=== PATIENT | female | born 1960 | race Caucasian/White ===

== ENCOUNTER 2024-06-03 22:33 | Inpatient (IN) ==
--- NOTE | 2024-06-03 22:48 | Emergency Department Note ---
Impression & Plan Multiple gallstones ADMIT ED Provider Note HPI: History obtained from patient. The patient is a 64-year-old female with history of alcohol related cirrhosis, mitral and pulmonic valve replacements with subsequent pacemaker placement for AV block, currently on Coumadin, presents the emergency department with a chief complaint of right upper quadrant pain and nausea and vomiting for the past 5 hours. Patient states she developed the symptoms at about 5:30 PM and had multiple episodes of vomiting since then. Patient states she does have a history of gallstones and was in the process of having an elective cholecystectomy arranged. Patient states she was going to have an upcoming appointment with general surgery in [place] for further discussion about this. Patient states they did not want to perform the surgery here in [place] secondary to her multiple comorbidities and the thought was that she had to have it performed at a tertiary care center. On arrival here to the ED otherwise the patient is hemodynamically stable, she states her pain is improved following IV fentanyl in the field via EMS. Patient otherwise appears to be in no acute distress on my initial assessment, she denies any chest pain or shortness of breath. ROS: - Per HPI Differential Diagnosis: Acute cholecystitis, choledocholithiasis, viral gastroenteritis, small bowel obstruction, amongst other potential pathologies. *Outpatient medications and allergy history reviewed. PE: General: Alert, no acute distress HEENT: Normocephalic, trachea midline Eyes: Extraocular eye movement is intact, no scleral erythema Pulmonary: Clear to auscultation bilaterally, no wheezing Cardio: Regular rate and rhythm GI: Abdomen is soft to palpation, there is tenderness in the right upper quadrant to palpation without guarding or rigidity : No suprapubic tenderness MSK: No evidence of trauma or malformation of the extremities, no edema Skin: No evidence of rash Neuro: Alert, no focal deficits Psychiatric: Cooperative INDEPENDENT INTERPRETATIONS: teletypesetter monitor: (As interpreted by myself): - An order was placed for continuous cardiac monitoring - Patient was noted to be in paced rhythm with a rate of 95 EKG: (As interpreted by myself): Rate: 103 Rhythm: Paced rhythm Intervals: MN within normal limits, QRS 148 ms, QTc [address] changes: No ST elevation Time: 2244 Interventions provided in ED: -IV cefepime Medical Decision Making: IV was established and lab work obtained, patient was placed on personnel monitor. Patient was given IV fentanyl in the field prior to arrival with relief of her pain. Lab work shows no leukocytosis, hemoglobin is stable at 10.8, platelet count is slightly low at 109 which appears to be near baseline. INR is supratherapeutic at 4.2, CMP shows a mild transaminitis with AST of 116, ALT of 57, alk phos is 140, total bilirubin is slightly elevated at 1.2. Urinalysis does not show any evidence of infection. Ultrasound imaging of the gallbladder shows evidence of multiple gallstones with some common bile duct dilatation at 8 mm and some pericholecystic fluid. On my exam the patient does have tenderness in the right upper quadrant. For outpatient review of the patient's general surgery notes earlier this month, she did have a HIDA scan performed that was abnormal. She was thought to have possible functional gallbladder disease versus chronic cholecystitis, and per review of Dr. Jefferson's outpatient note the patient was not thought to be a candidate for laparoscopic cholecystectomy secondary to her multiple comorbidities including cirrhosis and would likely require percutaneous cholecystostomy drain that should be done at [facility] in [place] as opposed to locally here in [place]. Patient states that she was in the midst of scheduling an appointment with general surgery in [place] to help arrange this procedure. Given this, I did reach out to the on-call general surgeon at [facility], Dr. Lee, and at this time he states the patient should stay at this facility and receive an MRCP and be evaluated by general surgery prior to potential transfer. I then discussed the patient's presentation with the on-call hospitalist, Dr. Andrade, and he is in agreement to admit the patient to arrange MRCP and general surgery consultation. On my reassessment the patient is resting in bed and she appears stable, she states her pain remains improved. She is in agreement for admission and she was placed for admission in stable condition. Consultants/Discussions held with other healthcare providers: -General Surgery at [facility], Dr. Lee -Hospitalist, Dr. Andrade Disposition discussion held by myself with: -Patient Diagnosis: 1. Nausea and vomiting, acute 2. Right upper quadrant abdominal pain, acute 3. Biliary colic with gallstones, acute 4. Transaminitis, acute, mild 5. Elevated bilirubin, acute, mild 6. Supratherapeutic INR Disposition: Admission Ganesh Sanders DO Emergency Medicine Past Med/Surg History Problem List (Updated 06/04/24 @ 01:13 by Ganesh Sanders DO) Multiple gallstones (Acute) Encounter for pre-operative examination Medical History (Updated 06/04/24 @ 01:13 by Ganesh Sanders DO) Sleep-disordered breathing Thrush self-diagnosed by patient, see below History of blood transfusion Complex sclerosing lesion of right breast Cholelithiasis [facility] ER 03/2024, told "had too many stones to count.. 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 Jordan/Ganesh DONOHUE Pacemaker (2015) [employer], Implanted 2015 for high-grade AV block after valve replacements Pacer check scheduled 06/11/24 in [place] Follows with Dr. 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) History of cardiac cath (2015) "Angiographically normal arteries" Post op Right groin pseudoaneurysm History of breast biopsy (03/2023) Left (benign) History of dilatation and curettage History of bilateral tubal ligation History of colonoscopy S/P thyroid surgery Goiter removal Family History Sister Family history of diabetes mellitus Mother Family history of diabetes mellitus Brother FHx: pancreatic cancer Other No family history of adverse response to anesthesia Social History Smoking Status: Never smoker Tobacco Type: Cigarettes Second Hand Exposure: No; Do You Dip or Chew Tobacco: No; Hx Alcohol Use: Yes Alcohol type: beer Hx Substance Use: No Preferred Language: Kyrgyz Communication Ability: Effective Salesforce Administrator Required: No Beliefs That Will Affect Care: None Current Living Situation: Significant Other Current Living Situation Comment: lives with boyfriend Feels Safe at Home: Yes Assistive Devices: Denture - Upper, Denture - Lower and Glasses Allergies Allergies Allergy/AdvReac Type Severity Reaction Status Date / Time Iodinated Contrast Media Allergy Severe Rash and Verified 05/17/24 14:49 sore mouth with IVP Dye Penicillins Allergy Severe Hives Verified 05/17/24 14:49 Home Meds Home Medications Medication Instructions Recorded Confirmed aspirin 81 mg tablet,delayed 162 mg PO QAM 10/01/19 05/17/24 release (Pacheco Low Dose Aspirin) furosemide 40 mg tablet 40 mg PO QAM 10/01/19 05/17/24 lisinopril 5 mg tablet 5 mg PO QAM 10/01/19 05/17/24 metformin 1,000 mg tablet 1,000 mg PO BID 10/01/19 05/17/24 metoprolol succinate 25 mg 25 mg PO QAM 10/01/19 05/17/24 tablet,extended release 24 hr rosuvastatin 20 mg tablet 20 mg PO QAM 10/01/19 05/17/24 spironolactone 50 mg tablet 50 mg PO TID 10/01/19 05/17/24 warfarin 2 mg tablet 2 mg PO UD 10/01/19 05/17/24 acetaminophen 325 mg tablet 650 mg PO QID PRN Pain 05/17/24 05/17/24 (Tylenol) melatonin 10 mg tablet 10 - 30 mg PO HS PRN Sleep 05/17/24 05/17/24 Results & Data (ED) Vital Signs Vital Signs - 24 hr 06/03/24 22:08 06/03/24 22:38 06/03/24 22:38 Temperature 36.8 C Temperature Source Oral Pulse Rate 105 H 106 H Pulse Rate from SpO2 Sensor 106 H Respiratory Rate 18 18 Respiratory Effort / Characteristics Non-Labored Spontaneous Respiratory Depth Normal Respiratory Pattern Regular Blood Pressure 127/64 127/64 Blood Pressure Mean 85 96 Pulse Oximetry 95 95 95 Oxygen Delivery Method Room Air Room Air Sepsis Recent Fever Within 48 Hours No Sepsis New/Unexplained Change in Mental Status N/A Sepsis Action Taken by Nursing No Action Required 06/03/24 22:39 06/03/24 23:00 06/03/24 23:55 Temperature Temperature Source Pulse Rate 106 H 103 H 100 H Pulse Rate from SpO2 Sensor 101 H Respiratory Rate 18 17 Respiratory Effort / Characteristics Respiratory Depth Respiratory Pattern Blood Pressure 113/59 L 120/74 Blood Pressure Mean 85 97 Pulse Oximetry 94 92 Oxygen Delivery Method Sepsis Recent Fever Within 48 Hours Sepsis New/Unexplained Change in Mental Status Sepsis Action Taken by Nursing 06/04/24 00:00 06/04/24 00:30 Temperature Temperature Source Pulse Rate 100 H 97 H Pulse Rate from SpO2 Sensor 100 H 97 H Respiratory Rate 21 17 Respiratory Effort / Characteristics Respiratory Depth Respiratory Pattern Blood Pressure 116/69 104/64 Blood Pressure Mean 84 77 Pulse Oximetry 93 95 Oxygen Delivery Method Sepsis Recent Fever Within 48 Hours Sepsis New/Unexplained Change in Mental Status Sepsis Action Taken by Nursing Laboratory Data 06/03/24 22:40 06/03/24 22:40 Lab Results 06/03/24 06/03/24 Range/Units 22:40 23:54 WBC 7.25 (4.8-10.8) K/ul RBC 4.59 (4.20-5.40) M/uL Hgb 10.8 L (12.0-16.0) g/dl Hct 35.2 L (37.0-47.0) % MCV 76.7 L (80.0-100.0) fL MCH 23.5 L (25.0-34.0) pg MCHC 30.7 L (32.0-36.0) g/dL RDW Std Deviation 40.3 (36.4-46.3) fL RDW Coeff of Marissa 14.7 H (11.5-14.5) % Plt Count 109 L (130-400) K/uL MPV 8.4 L (9.4-12.4) fL Immature Gran % (Auto) 0.3 % Neut % (Auto) 84.7 % Lymph % (Auto) 10.5 % [place] % (Auto) 3.9 % Eos % (Auto) 0.3 % Baso % (Auto) 0.3 % Neut # (Auto) 6.15 (1.40-6.50) K/uL Lymph # (Auto) 0.76 L (1.20-3.40) K/uL [place] # (Auto) 0.28 (0.11-0.59) K/uL Eos # (Auto) 0.02 (0.00-0.50) K/uL Baso # (Auto) 0.02 (0.00-0.20) K/uL Immature Gran # (Auto) 0.02 (0.01-0.20) K/uL PT 40.3 H (9.0-12.0) Seconds INR 4.2 H (0.9-1.1) Sodium 140 (136-145) mmol/L Potassium 3.7 (3.5-5.1) mmol/L Chloride 100 (98-107) mmol/L Carbon Dioxide 30 (21-32) mmol/L Anion Gap 10 (3-11) BUN 13 (6-23) mg/dl Creatinine 0.78 (0.6-1.2) mg/dl Est Cr Clr Drug Dosing 62.8 ml/min eGFR 83.72 BUN/Creatinine Ratio 16.7 (10-20) Glucose 148 H (70-99(Fasting)) mg/dl Calcium 9.1 (8.6-10.3) mg/dl Magnesium 1.5 L (1.7-2.4) mg/dl Total Bilirubin 1.2 H (0.2-1.0) mg/dl AST 116 H (13-39) U/L ALT 57 H (7-52) U/L Alkaline Phosphatase 140 H (34-104) U/L Troponin I High Sens 5.6 (0-14) pg/ml Total Protein 7.1 (6.0-8.3) gm/dl Albumin 4.2 (3.4-5.0) gm/dl Globulin 2.9 (2.5-4.0) gm/dl Albumin/Globulin Ratio 1.4 (0.9-2) Lipase 164 H (11-82) U/L Urine Color Yellow Urine Appearance Clear (Clear) Urine pH 5.5 (4.5-7.5) Ur Specific [place] 1.009 (1.000-1.030) Urine Protein Negative (Negative) Urine Glucose (UA) Negative (Negative) Urine Ketones Negative (Negative) Urine Blood Negative (Negative) Urine Nitrite Negative (Negative) Urine Bilirubin Negative (Negative) Urine Urobilinogen Negative (Negative) Ur Leukocyte Esterase Negative (Negative) Administered Medications Albumin Human (Albumin 25%) 25 gm in 100 mls @ 50 mls/hr IV ONE ONE Stop: 06/04/24 02:38 Last Admin: 06/04/24 01:05 Dose: 50 mls/hr Documented By: DEE Discontinued Medications Cefepime HCl (Maxipime 2000mg) 2,000 mg in 20 mls @ 5 mls/min IV NOW STA; Protocol Stop: 06/04/24 00:39 Last Admin: 06/04/24 01:08 Dose: 5 mls/min Documented By: DEE Imaging Data Radiologist's Impression: Gallbladder Ultrasound 06/03/24 22:46 Exam(s): US GALLBLADDER EXAM: US Abdomen Limited, Gallbladder CLINICAL HISTORY: Reason for exam: RUQ pain, N/V. TECHNIQUE: Real-time ultrasound of the right upper quadrant with image documentation. COMPARISON: No relevant prior studies available. FINDINGS: Gallbladder: The gallbladder wall measures 3 mm. There is pericholecystic fluid. There are gallstones within the gallbladder. Common bile duct: The common bile duct measured 8 mm.. Pancreas: Pancreas was limitedly visualized. The visualized portions are unremarkable. The pancreatic duct measured 2.4 mm. Liver: The liver is enlarged and of increased echogenicity. Right kidney: No calculi or hydronephrosis is seen. IMPRESSION: There are gallstones noted within the gallbladder. There is pericholecystic fluid noted. The common bile duct is dilated. The liver is enlarged and of increased echogenicity which may be due to fatty infiltration and/or hepatocellular disease. Electronically signed by: Vaibhav Jose MD 06/04/24 00:04 AM Discharge Plan Visit Data Chief Complaint: Abdominal Pain Stated Complaint: ABDOMINAL PAIN ED Provider: Ganesh Sanders Discharge Problem: Multiple gallstones Forms Stand Alone Forms: My [facility] [employer] Prescriptions Prescriptions: No Action furosemide 40 mg Tablet 40 mg PO QAM aspirin [Pacheco Low Dose Aspirin] 81 mg Tablet,Delayed Release (Dr/Ec) 162 mg PO QAM metformin 1,000 mg Tablet 1,000 mg PO BID warfarin 2 mg Tablet 2 mg PO UD Rx Instructions: 3mg Vygq-[id number]-Mcw-Sun 4mg Mon-Mon-Mon lisinopril 5 mg Tablet 5 mg PO QAM metoprolol succinate 25 mg Tablet Extended Release 24 Hr 25 mg PO QAM spironolactone 50 mg Tablet 50 mg PO TID rosuvastatin 20 mg Tablet 20 mg PO QAM acetaminophen [Tylenol] 325 mg Tablet 650 mg PO QID PRN (Reason: Pain) melatonin 10 mg Tablet 10 - 30 mg PO HS PRN (Reason: Sleep) Referrals Referrals: Georgi Ellison MD [Primary Care Provider] -
[2024-06-03 23:09] LABS: Basophils # (auto) 0.02 K/uL (0.00-0.20); Basophils % (auto) 0.3 %; Eosinophils # (auto) 0.02 K/uL (0.00-0.50); Eosinophils % (auto) 0.3 %; Hematocrit (blood only) 35.2 % (37.0-47.0); Hemoglobin 10.8 g/dl (12.0-16.0); Immature Granulocytes # (auto) 0.02 K/uL (0.01-0.20); Immature Granulocytes % (auto) 0.3 %; Lymphocytes # (auto) 0.76 K/uL (1.20-3.40); Lymphocytes % (auto) 10.5 %; Mean Corpuscular Hemoglobin 23.5 pg (25.0-34.0); Mean Corpuscular Hgb Conc 30.7 g/dL (32.0-36.0); Mean Corpuscular Volume 76.7 fL (80.0-100.0); Mean Platelet Volume 8.4 fL (9.4-12.4); Monocytes # (auto) 0.28 K/uL (0.11-0.59); Monocytes % (auto) 3.9 %; Neutrophils # (auto) 6.15 K/uL (1.40-6.50); Neutrophils % (auto) 84.7 %; Platelet Count 109 K/uL (130-400); RDW Coefficient of Variation 14.7 % (11.5-14.5); RDW Standard Deviation 40.3 fL (36.4-46.3); Red Blood Count 4.59 M/uL (4.20-5.40); White Blood Count 7.25 K/ul (4.8-10.8)
[2024-06-03 23:16] LABS: Albumin Globulin Ratio 1.4 (0.9-2); Albumin Level 4.2 gm/dl (3.4-5.0); BUN Creatinine Ratio 16.7 (10-20); Bilirubin,Total 1.2 mg/dl (0.2-1.0); Calcium 9.1 mg/dl (8.6-10.3); Creatinine Clr Calc Pharmacy 62.8 ml/min; Globulin 2.9 gm/dl (2.5-4.0); Potassium 3.7 mmol/L (3.5-5.1); Total Protein 7.1 gm/dl (6.0-8.3)
[2024-06-03 23:21] LABS: Troponin I High Sensitivity 5.6 pg/ml (0-14)
[2024-06-03 23:56] LABS: INR 4.2 (0.9-1.1); Prothrombin Time 40.3 Seconds (9.0-12.0)
--- NOTE | 2024-06-04 00:05 | Ultrasound Report ---
Exam(s): US GALLBLADDER EXAM: US Abdomen Limited, Gallbladder CLINICAL HISTORY: Reason for exam: RUQ pain, N/V. TECHNIQUE: Real-time ultrasound of the right upper quadrant with image documentation. COMPARISON: No relevant prior studies available. FINDINGS: Gallbladder: The gallbladder wall measures 3 mm. There is pericholecystic fluid. There are gallstones within the gallbladder. Common bile duct: The common bile duct measured 8 mm.. Pancreas: Pancreas was limitedly visualized. The visualized portions are unremarkable. The pancreatic duct measured 2.4 mm. Liver: The liver is enlarged and of increased echogenicity. Right kidney: No calculi or hydronephrosis is seen. IMPRESSION: There are gallstones noted within the gallbladder. There is pericholecystic fluid noted. The common bile duct is dilated. The liver is enlarged and of increased echogenicity which may be due to fatty infiltration and/or hepatocellular disease. Electronically signed by: Vaibhav Jose MD 06/04/24 00:04 AM
[2024-06-04 00:14] LABS: Appearance Urine Clear (Clear); Bilirubin Urine Negative (Negative); Blood Urine Negative (Negative); Color Urine Yellow; Glucose Urine UA Negative (Negative); Ketones Urine Negative (Negative); Leukocyte Esterase Urine Negative (Negative); Nitrite Urine Negative (Negative); Protein Urine Negative (Negative); Specific Gravity Urine 1.009 (1.000-1.030); Urobilinogen Urine Negative (Negative); pH Urine 5.5 (4.5-7.5)
[2024-06-04 00:59] LABS: Magnesium 1.5 mg/dl (1.7-2.4)
[2024-06-04] MEDS: ALBUMIN 25% 25 GM/100 ML VIAL IV ONE (01:05)
--- NOTE | 2024-06-04 01:05 | History & Physical Report ---
Date of Service June 04, 2024 Assessment & Plan (1) Hypotension: Plan: Transient hypotension Biliary pancreatitis History cholelithiasis Rule out CBD obstruction given abnormal LFTs No sepsis for now chronic systolic heart failure (EF 45%, TTE 2023), equivocal volume status, some congestion on imaging congenital heart disease (pulmonic regurgitation)/mitral regurgitation status post MVR/PVR complete heart block status post PPM hx postop A-fib on Coumadin, INR supratherapeutic PVD status post surgery hyperlipidemia, on statin Rx alcoholic cirrhosis, some signs of fluid overload right breast atypical ductal hyperplasia, patient follows with local breast surgeon DM2 on oral medications, well-controlled as of recent hemoglobin A1c of 6.5 this month chronic anemia, hemoglobin at baseline chronic thrombocytopenia likely secondary to liver disease Hypomagnesemia alcohol abuse as per records past tobacco abuse PCU IV albumin in place of crystalloid for IVF given pulmonary congestion on imaging CT abdomen pelvis re: abdominal pain with abnormal LFTs rule out CBD obstruction (Patient unable to undergo MRCP due to PPM.) GI consult re: pancreatitis Further management contingent on CT abdomen pelvis results Hold Coumadin for now in anticipation of procedure MER S at risk protocol, DT precautions Replace electrolytes ISS BG goal 1 10-1 40 DVT prophylaxis. SCDs if INR less than 2 while Coumadin on hold re: thrombocytopenia, possible procedure Full code Text document was generated using [employer] voice recognition software. It may contain grammatical or spelling errors. Kindly contact undersigned for clarification of any documentation item in question. History of Present Illness Chief Complaint: Abdominal pain Primary Care Provider: Georgi Ellison MD History obtained from patient and records. Medical history significant for chronic systolic heart failure (EF 45%, TTE 2023), congenital heart disease (pulmonic regurgitation)/mitral regurgitation status post MVR/PVR, complete heart block status post PPM, A-fib on Coumadin, PVD status post surgery, hypertension, hyperlipidemia, alcoholic cirrhosis, cholelithiasis, right breast atypical ductal hyperplasia, DM2 on oral medications, chronic anemia (baseline hemoglobin of 10), chronic thromboc ytopenia, mood disorder, alcohol abuse as per records, past tobacco abuse. 2 months ago, patient had achy right-sided abdominal discomfort. Patient evaluated at [facility] ER. CT abdomen pelvis and ultrasound showed cholelithiasis without obstruction. Outpatient General Surgery consultation recommended. Patient seen at [facility] office last month. Outpatient HIDA scan recommended. 1. Gallbladder does not fill and the patient was unable to receive morphine or delayed images to exclude acute cholecystitis. These findings may represent functional gallbladder disease, chronic cholecystitis or acute cholecystitis. 2. Patent common bile duct. Patient seen on follow-up at the general surgeon's office 2 weeks ago. Concern for chronic cystic duct obstruction due to gallbladder not filling up on HIDA scan. Patient would not be a candidate locally for lap david; PERC drain may be a better intervention given patient medical issues as per provider note. Outpatient referral to [facility] General Surgery 06/07 contemplated. Patient had worsening achy right-sided abdominal pain associated with nausea and bilious emesis following dinner last night. No unusual chest pain or SOB. Some chills at home. Patient consulted ER for evaluation. IV cefepime administered at the ER. ED provider contacted [facility] General Surgery to transfer patient after review of history. Surgeon on-call (Dr. Lee) declined transfer recommending MRCP and [facility] General Surgery evaluation prior to transfer as per ED provider. Lowest SBP of 80s documented at the ER. Medical History as above Surgical History : Breast biopsy, D&C, PPM, BTL, cataract surgeries, MVR, PVR, left breast lumpectomy Family History : DM, hypertension Personal/Social history : Past tobacco abuse, alcohol abuse as per records, retired from childcare work Allergies Allergy/AdvReac Type Severity Reaction Status Date / Time Iodinated Contrast Media Allergy Severe Rash and Verified 06/04/24 02:27 sore mouth with IVP Dye Penicillins Allergy Severe Hives Verified 06/04/24 02:27 Home Medications Medication Instructions Recorded Confirmed Type aspirin 81 mg tablet,delayed 162 mg PO QAM 10/01/19 06/04/24 History release (Pacheco Low Dose Aspirin) furosemide 40 mg tablet 40 mg PO QAM 10/01/19 06/04/24 History metformin 1,000 mg tablet 1,000 mg PO BID 10/01/19 06/04/24 History metoprolol succinate 25 mg 25 mg PO QAM 10/01/19 06/04/24 History tablet,extended release 24 hr rosuvastatin 20 mg tablet 20 mg PO QAM 10/01/19 06/04/24 History spironolactone 50 mg tablet 50 mg PO TID 10/01/19 06/04/24 History warfarin 2 mg tablet 2 mg PO UD 10/01/19 06/04/24 History acetaminophen 325 mg tablet 650 mg PO QID PRN Pain 05/17/24 06/04/24 History (Tylenol) melatonin 10 mg tablet 10 - 30 mg PO HS PRN Sleep 05/17/24 06/04/24 History losartan 25 mg tablet 25 mg PO DAILY 06/04/24 06/04/24 History nystatin 100,000 unit/gram topical 1 applic topical BID 06/04/24 06/04/24 History cream potassium chloride 20 mEq 20 meq PO BID 06/04/24 06/04/24 History tablet,extended release sennosides 8.6 mg tablet (senna) 8.6 mg PO HS PRN Constipation 06/04/24 06/04/24 History tramadol 50 mg tablet 50 mg PO DAILY 06/04/24 06/04/24 History Past Med/Surg History Problem List (Updated 06/04/24 @ 03:58 by Ben Andrade MD) Hypotension Multiple gallstones (Acute) Encounter for pre-operative examination Medical History (Updated 06/04/24 @ 03:58 by Ben Andrade MD) Sleep-disordered breathing Thrush self-diagnosed by patient, see below History of blood transfusion Complex sclerosing lesion of right breast Cholelithiasis [facility] ER 03/2024, told "had too many stones to count.. 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 Jordan/Ganesh Jennings PAC Pacemaker (2016) Medtronic, Implanted 2016 for high-grade AV block after valve replacements Pacer check scheduled 06/11/24 in [place] Follow[address] with Dr. Jordan/Ganesh Jennings PAC Cirrhosis ETOH-related Diabetes mellitus, type 2 NIDDM Hyperlipidemia Hypertension controlled, stable per pt Surgical History (Updated 05/28/24 @ 11:24 by Ese Santizo PA-C) S/P pericardiocentesis (2015) + pericardial window; 2016 after pacer insertion History of open heart surgery (2016) [place]- Mitral and pulmonic valve replacements (bioprosthetic) with pulmonary artery aneurysm repair AND PPM placement for post-procedure AV bl ock (2016) History of cardiac cath (2016) "Angiographically normal arteries" Post op Right groin pseudoaneurysm History of breast biopsy (03/2023) Left (benign) History of dilatation and curettage History of bilateral tubal ligation History of colonoscopy S/P thyroid surgery Goiter removal Family History Sister Family history of diabetes mellitus Mother Family history of diabetes mellitus Brother FHx: pancreatic cancer Other No family history of adverse response to anesthesia Social History Smoking Status: Former smoker Tobacco Type: Cigarettes Smoking End Date: quit "about 30 years ago"; Second Hand Exposure: No; Do You Dip or Chew Tobacco: No; Hx Alcohol Use: Yes Alcohol type: beer Hx Substance Use: No Preferred Language: Cymraes Communication Ability: Effective Label Folder Required: No Beliefs That Will Affect Care: None Current Living Situation: Significant Other Current Living Situation Comment: lives with boyfriend Other Information That Helps Us Care for You: No Feels Safe at Home: Yes Safety Concerns: Feels Safe At This Time Assistive Devices: Denture - Upper, Denture - Lower and Glasses Review of Systems Review of Systems: As per HPI, all other systems reviewed and negative Physical Exam Physical Exam: GENERAL: Comfortable, pleasant, no respiratory distress SKIN: Pallor, warm HEENT: Pale palpebral conjunctivae, no ptosis, dry buccal mucosa NECK : Supple, no tenderness CHEST : Decreased breath sounds, no tenderness HEART : RRR, systolic murmur ABDOMEN: Some distention, epigastric tenderness EXTREMITIES : Minimal LE swelling, no LE tenderness, no other conspicuous deformities noted NEUROLOGIC : Coherent, no facial asymmetry, no other gross focality Results & Data Results & Data Vital Signs (Past 12 Hours) Vital Signs Temp Pulse Resp BP Pulse Ox O2 Del Method 06/04/24 00:30 97 H 17 104/64 95 06/04/24 00:00 100 H 21 116/69 93 06/03/24 23:55 100 H 17 120/74 92 06/03/24 23:00 103 H 18 113/59 L 94 06/03/24 22:39 106 H 06/03/24 22:38 106 H 18 127/64 95 06/03/24 22:38 95 Room Air 06/03/24 22:08 36.8 C 105 H 18 127/64 95 Room Air Laboratory Results Laboratory Results WBC 7.25 K/ul (4.8-10.8) 06/03/24 22:40 RBC 4.59 M/uL (4.20-5.40) 06/03/24 22:40 Hgb 10.8 g/dl (12.0-16.0) L 06/03/24 22:40 Hct 35.2 % (37.0-47.0) L 06/03/24 22:40 MCV 76.7 fL (80.0-100.0) L 06/03/24 22:40 MCH 23.5 pg (25.0-34.0) L 06/03/24 22:40 MCHC 30.7 g/dL (32.0-36.0) L 06/03/24 22:40 RDW Std Deviation 40.3 fL (36.4-46.3) 06/03/24 22:40 RDW Coeff of Marissa 14.7 % (11.5-14.5) H 06/03/24 22:40 Plt Count 109 K/uL (130-400) L 06/03/24 22:40 MPV 8.4 fL (9.4-12.4) L 06/03/24 22:40 Immature Gran % (Auto) 0.3 % 06/03/24 22:40 Neut % (Auto) 84.7 % 06/03/24 22:40 Lymph % (Auto) 10.5 % 06/03/24 22:40 Laurel % (Auto) 3.9 % 06/03/24 22:40 Eos % (Auto) 0.3 % 06/03/24 22:40 Baso % (Auto) 0.3 % 06/03/24 22:40 Neut # (Auto) 6.15 K/uL (1.40-6.50) 06/03/24 22:40 Lymph # (Auto) 0.76 K/uL (1.20-3.40) L 06/03/24 22:40 Laurel # (Auto) 0.28 K/uL (0.11-0.59) 06/03/24 22:40 Eos # (Auto) 0.02 K/uL (0.00-0.50) 06/03/24 22:40 Baso # (Auto) 0.02 K/uL (0.00-0.20) 06/03/24 22:40 Immature Gran # (Auto) 0.02 K/uL (0.01-0.20) 06/03/24 22:40 PT 40.3 Seconds (9.0-12.0) H 06/03/24 22:40 INR 4.2 (0.9-1.1) H 06/03/24 22:40 Sodium 140 mmol/L (136-145) 06/03/24 22:40 Potassium 3.7 mmol/L (3.5-5.1) 06/03/24 22:40 Chloride 100 mmol/L (98-107) 06/03/24 22:40 Carbon Dioxide 30 mmol/L (21-32) 06/03/24 22:40 Anion Gap 10 (3-11) 06/03/24 22:40 BUN 13 mg/dl (6-23) 06/03/24 22:40 Creatinine 0.78 mg/dl (0.6-1.2) 06/03/24 22:40 Est Cr Clr Drug Dosing 62.8 ml/min 06/03/24 22:40 eGFR 83.72 06/03/24 22:40 BUN/Creatinine Ratio 16.7 (10-20) 06/03/24 22:40 Glucose 148 mg/dl (70-99(Fasting)) H 06/03/24 22:40 Calcium 9.1 mg/dl (8.6-10.3) 06/03/24 22:40 Magnesium 1.5 mg/dl (1.7-2.4) L 06/03/24 22:40 Total Bilirubin 1.2 mg/dl (0.2-1.0) H 06/03/24 22:40 AST 116 U/L (13-39) H 06/03/24 22:40 ALT 57 U/L (7-52) H 06/03/24 22:40 Alkaline Phosphatase 140 U/L (34-104) H 06/03/24 22:40 Troponin I High Sens 5.6 pg/ml (0-14) 06/03/24 22:40 Total Protein 7.1 gm/dl (6.0-8.3) 06/03/24 22:40 Albumin 4.2 gm/dl (3.4-5.0) 06/03/24 22:40 Globulin 2.9 gm/dl (2.5-4.0) 06/03/24 22:40 Albumin/Globulin Ratio 1.4 (0.9-2) 06/03/24 22:40 Lipase 164 U/L (11-82) H 06/03/24 22:40 Urine Color Yellow 06/03/24 23:54 Urine Appearance Clear (Clear) 06/03/24 23:54 Urine pH 5.5 (4.5-7.5) 06/03/24 23:54 Ur Specific [place] 1.009 (1.000-1.030) 06/03/24 23:54 Urine Protein Negative (Negative) 06/03/24 23:54 Urine Glucose (UA) Negative (Negative) 06/03/24 23:54 Urine Ketones Negative (Negative) 06/03/24 23:54 Urine Blood Negative (Negative) 06/03/24 23:54 Urine Nitrite Negative (Negative) 06/03/24 23:54 Urine Bilirubin Negative (Negative) 06/03/24 23:54 Urine Urobilinogen Negative (Negative) 06/03/24 23:54 Ur Leukocyte Esterase Negative (Negative) 06/03/24 23:54 Impressions Gallbladder Ultrasound 06/03/24 22:46 Exam(s): US GALLBLADDER EXAM: US Abdomen Limited, Gallbladder CLINICAL HISTORY: Reason for exam: RUQ pain, N/V. TECHNIQUE: Real-time ultrasound of the right upper quadrant with image documentation. COMPARISON: No relevant prior studies available. FINDINGS: Gallbladder: The gallbladder wall measures 3 mm. There is pericholecystic fluid. There are gallstones within the gallbladder. Common bile duct: The common bile duct measured 8 mm.. Pancreas: Pancreas was limitedly visualized. The visualized portions are unremarkable. The pancreatic duct measured 2.4 mm. Liver: The liver is enlarged and of increased echogenicity. Right kidney: No calculi or hydronephrosis is seen. IMPRESSION: There are gallstones noted within the gallbladder. There is pericholecystic fluid noted. The common bile duct is dilated. The liver is enlarged and of increased echogenicity which may be due to fatty infiltration and/or hepatocellular disease. Electronically signed by: Vaibhav Jose MD 06/04/24 00:04 AM Diagnostic Findings Chest x-ray as per my interpretation cardiomegaly, minimal congestion EKG as per my interpretation : Rate 105, paced rhythm
[2024-06-04] MEDS: CEFEPIME 2000MG 2,000 MG/20 ML SYR IV STA (01:08)
[2024-06-04] MEDS ORDERED: LORazepam 2 MG/1 ML VIAL IV PRN (01:08)
[2024-06-04] MEDS ORDERED: LORazepam 0.5 MG TAB PO PRN (01:14)
[2024-06-04] MEDS ORDERED: oxyCODONE HCL IR 5 MG TAB (IMMEDIATE RELEASE) PO PRN (01:14)
--- NOTE | 2024-06-04 01:23 | XRay Report ---
EXAM: XR chest 1V portable CLINICAL HISTORY: CHF WTW TECHNIQUE: An X-ray image of the chest is obtained in AP projection. COMPARISON: No prior studies are available for comparison. FINDINGS: Pulmonary Parenchyma: Prominent broncho vascular markings. No evidence of consolidation, collapse, or focal opacities. No evidence of significant pleural effusion or pleural thickening. Heart and Mediastinum: Cardiac device with right atrial and ventricular leads. Cardiomegaly with a prominent aortic knuckle. Prominent right hilar shadow. Bony Thorax: Sternotomy wires are noted. Soft Tissues: Soft tissues overlying the chest wall are unremarkable. IMPRESSION: 1. Cardiomegaly with prominent broncho vascular markings, clinical correlation is advised to assess pulmonary congestion. 2. Prominent right hilar shadow. 3. Cardiac device with atrial and ventricular leads. Electronically signed by Deondre Zhao 06-04-2024 01:23 AM
[2024-06-04] MEDS: PROMETHAZINE 6.25 MG/50.25 ML BAG IV PRN (01:46)
[2024-06-04] MEDS: THIAMINE HCL 100 MG in SYRINGE 9 ML IV STA (01:46)
[2024-06-04] MEDS ORDERED: DEXTROSE 50% 50 ML SYRINGE IV PRN (02:29)
[2024-06-04] MEDS ORDERED: GLUCOSE 10 TAB/TUBE PO PRN (02:29)
[2024-06-04] MEDS ORDERED: GLUCOSE 40% GEL 15 GM TUBE PO PRN (02:29)
[2024-06-04] MEDS ORDERED: GLUCAGON FOR INJ 1 MG VIAL SQ PRN (02:29)
[2024-06-04] MEDS ORDERED: CARBOHYDRATES FOR HYPOGLYCEMIA PO PRN (02:29)
[2024-06-04] MEDS ORDERED: SENNA 8.6 MG TAB PO PRN (02:55)
[2024-06-04] MEDS: INSULIN ASPART PER UNIT CHARGE SC SCH ×2 (03:02→17:35)
[2024-06-04] MEDS: MAGNESIUM SULFATE / D5W 1 GM/100 ML BAG IV SCH (03:45)
--- NOTE | 2024-06-04 04:24 | CT Scan Report ---
EXAM: CT abd pelvis wo con CLINICAL HISTORY: abd pain TECHNIQUE: Contiguous axial images were obtained from the level of the diaphragm to the pubic symphysis without intravenous or oral contrast. Coronal and sagittal reconstructions were likewise performed and indicated to increase the sensitivity for detecting clinically relevant pathology. CT scan was performed according to ALARA (as low as reasonable achievable). COMPARISON: None. FINDINGS: The visualized lung bases show fibrotic bands and mosaic attenuation pattern. Evaluation of the abdominal and pelvic visceral organs is limited without intravenous contrast. The liver shows nodular margins with apparent left and caudate lobe hypertrophy. Portal vein appears to be replaced by multiple collaterals at shantal hepatis. Multiple calculi averaging 3-4 mm are seen in gallbladder lumen, without pericholecystic fluid or fat stranding. The spleen, pancreas, and adrenal glands are grossly unremarkable. The kidneys are normal in size and attenuation without obvious calcification. There is no hydronephrosis or perinephric stranding. The ureters are normal in caliber. No adenopathy or fluid collections are seen. No evidence of focal or diffuse bowel wall thickening or evidence of bowel obstruction is seen. The appendix is visualized in the right lower quadrant and appears within normal limits. The aorta is normal in caliber without calcific plaques. The uterus shows a subcentimetric lipo-leiomyoma in posterior myometrium and a subcentimetric subserosal calcified fibroid in anterior myometrium. A cystic lesion measuring 4 cm AP by 3 cm transversely is noted in right adnexa. Degenerative changes are noted in the visualized spine. IMPRESSION: 1. Chronic liver disease with periportal portosystemic collaterals. 2. Cholelithiasis, without imaging evidence of cholecystitis. 3. Right adnexal cyst, recommend ultrasound correlation. 4. Small uterine leiomyomas. Electronically signed by Magdaleno Knott 06-04-2024 04:24 AM
[2024-06-04] MEDS: ACETAMINOPHEN 500 MG TAB PO PRN (05:19)
[2024-06-04 06:16] LABS: Basophils # (auto) 0.02 K/uL (0.00-0.20); Basophils % (auto) 0.6 %; Eosinophils # (auto) 0.01 K/uL (0.00-0.50); Eosinophils % (auto) 0.3 %; Hematocrit (blood only) 30.2 % (37.0-47.0); Hemoglobin 9.5 g/dl (12.0-16.0); Immature Granulocytes # (auto) 0.01 K/uL (0.01-0.20); Immature Granulocytes % (auto) 0.3 %; Lymphocytes # (auto) 1.05 K/uL (1.20-3.40); Lymphocytes % (auto) 29.9 %; Mean Corpuscular Hgb Conc 31.5 g/dL (32.0-36.0); Mean Corpuscular Volume 76.3 fL (80.0-100.0); Mean Platelet Volume 8.7 fL (9.4-12.4); Monocytes # (auto) 0.17 K/uL (0.11-0.59); Monocytes % (auto) 4.8 %; Neutrophils # (auto) 2.25 K/uL (1.40-6.50); Neutrophils % (auto) 64.1 %; Platelet Count 102 K/uL (130-400); RDW Coefficient of Variation 14.7 % (11.5-14.5); Red Blood Count 3.96 M/uL (4.20-5.40); White Blood Count 3.51 K/ul (4.8-10.8)
[2024-06-04 06:42] LABS: INR 3.6 (0.9-1.1)
[2024-06-04 06:44] LABS: Albumin Globulin Ratio 1.7 (0.9-2); BUN Creatinine Ratio 16.7 (10-20); Bilirubin,Total 0.9 mg/dl (0.2-1.0); Creatinine Clr Calc Pharmacy 66.3 ml/min; Globulin 2.3 gm/dl (2.5-4.0); Magnesium 2.2 mg/dl (1.7-2.4); Potassium 3.1 mmol/L (3.5-5.1); Total Protein 6.3 gm/dl (6.0-8.3)
--- NOTE | 2024-06-04 07:12 | Communication Note ---
Date of Service: June 04, 2024 patient with concern for pancreatitis with noted gallstones and concern for gallbladder pathology. GI consulted, appreciate recs. General Surgery consulted, appreciate recs After GI evaluation, patient started on clear diet, advance as tolerated. Made n.p.o. after midnight for possible general surgery evaluation. Continue with IV pain meds as needed and antiemetics as needed. MER S protocol as needed, continue to monitor on telemetry for any signs of withdrawal. Pelvic ultrasound ordered for follow-up as noted on CT abdomen pelvis of adnexal cyst. For the full plan of care, please see the history and physical from the same date of service.
[2024-06-04] MEDS: ALBUMIN 25% 25 GM/100 ML VIAL IV SCH (07:48)
[2024-06-04] MEDS: FOLIC ACID 1 MG TAB PO SCH (07:48)
[2024-06-04] MEDS: METOPROLOL SUCC 25MG EXT REL TAB PO SCH (07:48)
[2024-06-04] MEDS: MULTIVITAMIN TAB PO SCH (07:48)
--- NOTE | 2024-06-04 08:42 | Electrocardiogram Report ---
Test Reason : Blood Pressure : */* mmHG Vent. Rate : 103 BPM Atrial Rate : 103 BPM P-R Int : 158 ms QRS Dur : 148 ms QT Int : 408 ms P-R-T Axes : 78 268 81 degrees QTcB Int : 534 ms Atrial-sensed ventricular-paced rhythm Abnormal ECG No previous ECGs available Confirmed by Yobani Paz ([id number]) on 06/04/2024 8:41:31 AM Referred By: REFERRED SELF Confirmed By: Yobani Paz
[2024-06-04] MEDS: INFLUENZA VACC TS2024-25(65y+)/PF (IIV3) 0.5mL Syr IM ONE (08:44)
[2024-06-04] MEDS: POTASSIUM CHLORIDE CRTAB 20 MEQ TABCR PO STA (08:56)
--- OUTSIDE RECORDS SUMMARY | 2024-06-04 10:26 | External Medical Summary | Summary of Care ---
Author Name Unknown Organization [facility] Address [address] [place] [address] Phone [phone] Care Team Providers Care Product Management Consultant Name Role Phone Stephanie Cantu PA-C Primary Care Provider [phone] Reason for Visit * Reason Comments eRx-Medication Refill Encounter Details Date Type Department Care Team (Late st Contact Info) Description 05/27/2024 Refill Family Medicine [address] [phone] Georgi Ellison MD [address] [place] [address] [place] [address] Thrush Allergies Active Allergy Reactions Criticality Noted Date Comments Iodinated Contrast Media Rash 10/27/2015 Oral canker sores Penicillins Rash 10/28/2003 documented as of this encounter (statuses as of 05/28/2024) Medications Blood Glucose Monitoring Suppl (BLOOD GLUCOSE METER) KIT Test once daily or as directed Dx: E11.9 1 Kit 0 015 Active aspirin 81 MG chewable tablet Take 2 Tabs by mouth daily. 60 Tab 0 016 Active nystatin 429704 UNIT/GM creamIndications :Candidal vulvovaginitis Apply topically to affected area 2 times a day. To affacted area for two weeks. 30 g 2 019 Active Additional Information Patient not taking.Reported on 02/19/2024 Melatonin 10 MG Oral Tablet Take 2 Tablets by mouth at bedtime. Active Acetaminophen 500 MG Oral Tablet (Tylenol) Take 1 Tablet by mouth every 6 hours as needed. Active OneTouch Delica Lancets 33GIndications:T ype 2 diabetes mellitus without complications (HCC) USE DIRECTED ONCE DAILY E11.9 100 Each 2 023 Active OneTouch Ultra In Vitro Strip (Glucose Blood)Indication s:Type 2 diabetes mellitus without complications (HCC) USE DIRECTED ONCE DAILY E11.9 100 Strip 2 023 Active Warfarin Sodium 2 MG Oral Tablet (Coumadin) Take 1 and 1/2 tablets to 2 tablets by mouth daily or as directed by anticoagulation clinic. 180 Tablet 3 023 Active metFORMIN HCl 1000 MG Oral Tablet (Glucophage)Luz Marina cations:Type 2 diabetes mellitus with hemoglobin A1c goal of less than 7.0% (HCC) Take 1 Tablet by mouth 2 times a day with morning and evening meals 180 Tablet 3 024 Active Losartan Potassium 25 MG Oral Tablet (Cozaar)Indicati ons:Type 2 diabetes mellitus with hemoglobin A1c goal of less than 7.0% ([facility]) Take 1 Tablet by mouth daily. 90 Tablet 3 024 Active Rosuvastatin Calcium 20 MG Oral Tablet (Crestor)Indicat ions:Dyslipidemi a, goal LDL below 100 Take 1 Tablet by mouth in the morning. 90 Tablet 3 04/16/20 24 11:38 AM EDT 024 Active Metoprolol Succinate ER 25 MG Oral Tablet Extended Release 24 Hour (toPROL XL)Indications:S /P mitral valve replacement with bioprosthetic valve,S/P pulmonary valve replacement with bioprosthetic valve Take 1 Tablet by mouth in the morning. 90 Tablet 1 04/11/20 24 11:00 AM EDT 024 Active Spironolactone 50 MG Oral Tablet (Aldactone) Take 1 Tablet by mouth in the morning and 1 Tablet at noon and 1 Tablet before bedtime. 270 Tablet 1 04/11/20 24 11:00 AM EDT 024 Active Senna 8.6 MG Oral Tablet TAKE 2 TABLETS BY MOUTH AT BEDTIME NEEDED FOR CONSTIPATION Active traMADol HCl 50 MG Oral Tablet (Ultram) TAKE 1 TABLET BY MOUTH EVERY 6 HOURS FOR 2 DAYS NEEDED FOR PAIN Active Furosemide 40 MG Oral Tablet (Lasix) Take 1 Tablet by mouth in the morning. 100 Tablet 04/17/20 24 11:06 AM EDT Active Warfarin Sodium 2 MG Oral Tablet (Coumadin) Take one and one-half to two tablets by mouth daily or as directed by anticoagulation clinic. 200 Tablet 1 04/17/20 24 11:06 AM EDT 024 Active Potassium Chloride Dominique ER 20 MEQ Oral Tablet Extended Release Take 1 Tablet by mouth in the morning. 90 Tablet 1 024 Active Potassium Chloride Dominique ER 20 MEQ Oral Tablet Extended Release Take 1 Tablet by mouth in the morning. 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 03/18/2016 Cardiac pacemaker in situ 03/18/2016 S/P mitral valve replacement with bioprosthetic valve 03/11/2016 Right ventricular dilation 12/21/2015 Overview (12/21/2015): severe History of tobacco use 12/21/2015 Overview (12/21/2015): 36 pack years Contrast media allergy 11/17/2015 Thyroid nodule 10/26/2015 Incomplete right bundle branch block 08/07/2014 Arthritis of left knee 11/18/2013 Dyslipidemia, goal LDL below 100 04/12/2011 Mitral valve prolapse 12/25/2000 Fatty liver Type 2 diabetes mellitus wit h hemoglobin A1c goal of less than 7.0% Overview (11/10/2015): ICD-10 update of inactive term documented as of this encounter (statuses as of 05/28/2024) Resolved Problems Problem Noted Date Diagnosed Date Resolved Date Type 2 diabetes mellitus wit h diabetic chronic kidney disease 03/01/2021 10/15/2021 Systolic congestive heart failure 03/01/2021 10/02/2023 CKD (chronic kidney disease), stage II 02/16/2021 10/06/2023 Overview (02/17/2021): EGFR 84 Atherosclerosis of [place] ronary artery without angina pectoris 08/12/2019 10/06/2023 Alcoholic cirrhosis of liver without ascites 7 05/26/2017 Pseudoaneurysm of femoral artery 05/26/2017 05/26/2017 Pseudoaneurysm of femoral artery 04/23/2016 04/23/2016 Pericardial effusion 04/17/2016 017 Pericarditis 04/05/2016 12/29/2016 S/P mitral valve replacement 03/18/2016 03/18/2016 Thrombocytopenia 03/18/2016 08/12/2019 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 NONTOX MULTINODUL GOITER 06/25/200307/2021 ALCOHOL CIRRHOSIS LIVER 12/25/200005/17 Personal history of alcoholism 07/17/2000 08/28/2017 Overview (12/21/2015): Quit 2000 Pulmonic stenosis 11/17/2015 Chronic liver disease 2015 Mitral regurgitation 017 Overview (12/21/2015): Severe on MALA 12/2015 documented as of this encounter (statuses as of 05/28/2024) Immunizations Name Administration Dates Next Due COVID-19 mRNA, LNP-s, No Pre serve, 2-Dose Series (Moderna) 12/01/2020,11/03/2020 Pneumococcal Conjugate Vacci ne, 20-valent (Lubulst25) 05/12/2022 Pneumococcal Polysaccharide PPV23 (Pneumovax) 04/17/2012 Seasonal Influenza Vac., MDV , IM, 0.5 mL (Fluzone) 04/24/2016,04/24/2014,04/15/2013,04/17,04/12/2011,04/06/2010,04/17/2008 ,05/19/2006 Seasonal Influenza, PF, 6 M & above, IM , (FluLaval or Fluzone) 05/04/2022,06/22/2021,04/30/2020,05/07,04/05/2018,05/04/2017 Seasonal Influenza, Quadriva lent Hd (Fluzone Hd) 05/15/2023 Seasonal Influenza, Quadriva lent, No Preserve, IM 05/08/2015 TD - Tetanus/Diptheria (ADULT) 07/17/2002 TDAP (age 10 and older)(Boostrix) 11/27/2014 Zoster Vaccine Recombinant (Shingrix) 08/08/2020 ,02/27/2020 documented as of this encounter Social History Tobacco Use Types Packs/Day Years Used Date Smoking Tobacco: Former Cigarettes 2 28 0 12/30/1975 - 12/30/2003 Smokeless Tobacco: Never Alcohol Use Standard Drinks/Week Comments Yes 0 (1 standard drink = 0.6 oz pur e alcohol) occ rare beer PHQ-2 Answer Date Recorded PHQ Adult Total Score 0 02/09/2024 Hunger Vital Sign Answer Date Recorded Within the past 12 months, y ou worried that your food would run out before you got the money to buy more. Never true 10/02/19 24 Within the past 12 months, t he food you bought just didn't last and you didn't have money to get more. Never true 10/02/2023 Childcare Answer Date Recorded Do you feel overwhelmed with taking care of a child, family member or friend? No 10/02/2023 Does your family need help f inding childcare? (Household - for ages 0-17 years) Not on file 10/02/2023 Clothing Answer Date Recorded Have you been unable to get clothing when it was really needed? No 10/02/2023 Is your family able to get c lothes or diapers when needed? (Household - for ages 0-17 years) Not on file 10/02/2023 Personal Safety Answer Date Recorded Do you feel unsafe or have concerns for your saf ety? No 10/02/2023 Do you have concerns for you r family's safety? (Household - for ages 0-17 years) Not on file 10/02/2023 Utilities Answer Date Recorded Do you have trouble paying y our heating, water, or electric bill? No 10/02/2023 Is your family able to pay t he heat, water, or electric bill? (Household - for ages 0-17 years) Not on file 10/02/2023 Does your family have access to good internet? (Household - for ages 0-17 years) Not on file 10/02/2023 Employment Status Answer Date Recorded Are you unemployed or without regular income? No 10/02/2023 Does the household have a [facility] source of income? (Household - for ages 0-17 years) Not on file 10/02/2023 Social Connections Answer Date Recorded How often do you feel lonely or isolated from th ose around you? Never 10/02/2023 Financial Resource Strain Answer Date R ecorded Do you have any trouble payi ng for your medications, or do you think you might in the future? No 10/02/2023 Does your family have troubl e paying for medicine? (Household - for ages 0-17 years) Not on file 10/02/2023 Transportation Needs Answer Date Record ed READ ONLY Do you have troubl e getting a ride to medical visits or work? Never True 10/02/2023 Does your family have a hard time getting a ride to doctors visits? (Household - for ages 0-17 years) Not on file 10/02/2023 Has lack of transportation k ept you from medical appointments, meetings, work, or from getting things needed for daily living? Check all that apply. (Adult - for ages 18 years and over) Not on file 10/02/2023 Do you (or your family) have trouble finding or paying for a ride (transportation)? (Household - for ages 0-17 years) Not on file 10/02/2023 Housing Stability Answer Date Recorded Do you currently live in a s helter or have no steady place to sleep at night? No 10/02/2023 READ ONLY Do you think you a re at risk of becoming homeless? No 10/02/2023 Does your family worry about paying for your home or becoming homeless? (Household - for ages 0-17 years) Not on file 0 10/02/2023 Are you homeless or worried that you might be in the future? (Adult - for ages 18 years and over) Not on file Are you (or your family) noa eless or worried that you might be in the future? (Household - for ages 0-17 years) Not on file Food Insecurity Answer Date Recorded Do you need food for this week? No 10/02/2023 Are you able to get enough f ood for your family? (Household - for ages 0-17 years) Not on file 10/02/2023 Does your family need food t his week? (Household - for ages 0-17 years) Not on file 10/02/2023 Do you always have enough fo od for your family? (Household - for ages 0-17 years) Not on file 10/02/2023 Comments No Sex and Gender Information Value Date Recorded Sex Assigned at Female 11/15/2021 9:12 AM EDT Legal Sex Female 5:27 AM EST Gender Identity Female 11/15/2021 9:12 AM EDT Sexual Orientation Straight 11/15/2021 9: 12 AM EDT documented as of this encounter Functional Status * Are you deaf or do you have serious difficulty hearing? Answer Date of Assessment Author No 04/21/2016 1:15 AM EDT Deandra Colbert RN * Are you blind or do you have serious difficulty seeing, even when wearing glasses? Answer Date of Assessment Author No 04/21/2016 1:15 AM EDT Deandra Colbert RN * Do you have serious difficulty walking or climbing stairs? (5 years old or older) Answer Date of Assessment Author No 04/21/2016 1:15 AM EDT Williamso n, Deandra M, RN * Do you have difficulty dressing or bathing? (5 years old or older) Answer Date of Assessment Author No 04/21/2016 1:15 AM Deandra Gillis RN * Because of a physical, mental, or emotional condition, do you have difficulty doing errands alone such as visiting a doctors office or shopping? (15 years old or older) Answer Date of Assessment Author No 04/21/2016 1:15 AM Deandra Gillis RN documented as of this encounter Mental Status * Because of a physical, mental, or emotional condition, do you have serious difficulty concentrating, remembering, or making decisions? (5 years old or older) Answer Entry Date Author No 04/21/2016 1:15 AM Deandra Gillis RN documented in this encounter Miscellaneous Notes * Telephone Encounter - Shahid Reina RPh - 05/28/2024 2:03 PM ESTSigned Prescriptions: Disp Refills Potassium Chloride Dominique ER 20 MEQ Oral Tab*90 Tab*1 Sig: Take 1 Tablet by mouth in the morning.Authorizing Provider: GEORGI ELLISON User: SHAHID REINARefdavid Prescriptions: Disp Refills Nystatin 762441 UNIT/ML Mouth/Throat Suspe*240 mL 1 Sig:Swish and swallow 5 mL in the morning and 5 mL at noon and 5 mL in theevening and 5 mL before bedtime. For thrush..Refused By: SHAHID REINA for Refusal: Patient Should Contact Provider First documented in this encounter Plan of Treatment Upcoming Encounters Date Type Department Care Team (Late st Contact Info) Description 06/03/2024 1:40 PM EST Laboratory Laboratory [address] [place] [phone] [place] [address] 06/04/2024 6:15 AM EST Anticoagulation [facility], Vika Palomino [address] [place] [address] [place] G[place] [address] [facility], [address] [place] [address] 06/07/2024 2:15 PM EST Office Visit General Surgery, [place] [address] [place] [address] Tod Blair MD [address] [place], [place] [id number] 06/10/2024 2:30 PM EST Office Visit Cardiology, [facility] [address] [place] [phone] Karen Montemayor PA-C [address] [place] [address] 06/11/2024 9:00 AM EST Cardiac Studies Cardiology [address] [place] [address] [place] [place] [address] 06/19/2024 9:00 AM EST Scheduled Telephone General Surgery, [facility] [address] [place] [address] [facility], Nurse Gen Surg [facility] [address] [facility] [place] [address] 06/24/2024 7:15 AM EST Office Visit Non [facility], Operating Room, [facility] [address] [place] [facility] [place] [address] León Knox MD [address] [place] [address] 07/04/2024 11:30 AM EST Office Visit General Surgery, [facility] [address] [place] [address] León Knox MD [address] [place] [address] 08/02/2024 9:00 AM EST Office Visit Family Medicine [address] [place] [phone] Georgi Ellison MD [address] [place] [address] [place] [address] 09/03/2024 2:30 PM EST Office Visit Cardiology [address] [place] [address] Ganesh Jennings PA-C [address] [place] [address] 02/14/2025 10:00 AM EDT Nurse Only Ancillary [address] [place] [address] [place], Nurse Annual [address] [place] [address] 03/25/2025 9:45 AM EDT Imaging Radiology [address] [place] [address] Health Maintenance Due Date Last Done Comments Colonoscopy 2003 Sigmoidoscopy 2003 Hepatitis B Vaccine (1 of 3 - Risk 3-dose series) 2018 Fecal Occult Blood Test 03/12/2021 03/12/2020, 03/25 DXA Scan 2023 11/03/2009, 09/04/2007 COVID-19 Vaccine ( season) 2024 12/01/2020, 11/03/2020 Influenza Vaccine (FLU shot) (#1) 2024 05/15/2023, 05/04/2022, 06/22/2021, Additional history exists HbA1c 04/07/2024 10/06/2023, 05/18, 11/18/2022, Additional history exists B-12 06/14/2024 06/14/2023, 04/17, 02/16/2021, Additional history exists Albumin/Creatinine Ratio 10/05/2024 024, 11/18/2022, 10/15/2021, Additional history exists Cologuard 10/21/2024 10/21/2021, 09/16, 10/14/2021 Colorectal Cancer Screening 10/21/2024 DTap/Tdap Vaccines (2 - Td or Tdap) 11/27/2024 11/27/2014, 07/17/2002 Adult Wellness Visit 02/08/2025 02/09/2024, 11/22/2022, 11/15/2021 Depression Screening 02/08/2025 02/09/2024 Diabetic Foot Exam 02/08/2025 02/09/2024, 0 11/18/2022, 03/01/2021, Additional history exists Mammogram 03/05/2025 03/05/2024, 02/15, 02/22/2024, Additional history exists Diabetic Eye Exam 03/14/2025 03/14/2024, , 05/04/2022, Additional history exists GFR 04/22/2025 04/22/2024, 03/17, 01/03/2024, Additional history exists Hepatitis C Screening Completed 11/21/2019, 001 Zoster Vaccines Completed 08/08/2020, 02/27/2020 Pneumococcal Vaccine: 65+ Years Completed 05/12/2022, 04/17/2012 Cervical Cancer Screening Discontinued HPV/Co-Test Discontinued 11/18/2022 Pap Smear Discontinued 11/18/2022, 07/17, 11/27/2014, Additional history exists HPV (Gardasil) Vaccine Aged Out No lo nger eligible based on patient's age to complete this topic MENINGOCOCCAL (MENACTRA/MENVEO) Aged Out No longer eligible based on patient's age to complete this topic documented as of this encounter Medical Devices Implanted Type Area Cad Designer Device Identifier Shelf Expiration Date Model / Serial / Lot Sut Steel 6 [id number] - [id number] Implanted:Qty : 3 on 03/07/2016 by Dylan Puga MD [place] [facility] [place]/A: Sternum JN[place] : [employer] 12/14/2020 [id number] / / [id number] Valve Heart Mitral Epic 27mm - [id number] Implanted:Qty : 1 on 03/07/2016 by Dylan Puga MD at [place] [facility] [place] N/A: Heart ST ERI : CARDIOVASCULAR 01/13/2019 [id number] / [id number] / Valve Heart Aortic Epic 25mm - [id number] Implanted:Qty : 1 on 03/07/2016 by Dylan Puga MD at [place] [facility] [place] N/A: Heart ST ERI : CARDIOVASCULAR 11/25/2019 [id number] / [id number] / Lens Li61ao 13.00mm 18.50 - [id number] - [id number] Implanted:Qty : 1 on 02/29/2024 by Jayant Montaño MD at [facility] Left: Eye [employer] 09/13/2028 [id number] / [id number] / [id number] Lens Li61ao 13.00mm 19.50 - [id number] - [id number] Implanted:Qty : 1 on 03/07/2024 by Jayant Montaño MD at [facility] [employer] 10/14/2028 [id number] / [id number] / [id number] documented as of this encounter Visit Diagnoses Diagnosis Thrush Candidiasis of mouth documented in this encounter Advance Directives * Full Code (Latest Code Status on File) Date Activated Date Inactivated Comments 03/07/2024 10:02 AM 03/07/2024 4:32 PM This order reflects the patients wishes and were consensually agreed upon. Question Answer Comments Discussion of Advance Directives occurred with: Patient Does the patient have a Living Will? No Does the patient have Health Care Power of Attor andrez? No * Full Code Date Activated Date Inactivated Comments 02/29/2024 9:40 AM 02/29/2024 3:58 PM This order r eflects the patients wishes and were consensually agreed upon. Question Answer Comments Discussion of Advance Directives occurred with: Patient Does the patient have a Living Will? No Does the patient have Health Care Power of Attor andrez? No * Full Code Date Activated Date Inactivated Comments 03/03/2020 3:30 PM 03/03/2020 8:48 PM This order r eflects the patients wishes and were consensually agreed upon. Question Answer Comments Discussion of Advance Directives occurred with: Not Discussed * Full Code Date Activated Date Inactivated Comments 03/03/2020 12:40 PM 03/03/2020 3:30 PM This order reflects the patients wishes and were consensually agreed upon. Question Answer Comments Discussion of Advance Directives occurred with: Not Discussed * Full Code Date Activated Date Inactivated Comments 04/20/2016 11:29 PM 04/24/2016 7:11 PM This order reflects the patients wishes and were consensually agreed upon. Question Answer Comments Discussion of Advance Directives occurred with: Patient Care Teams Product Management Consultant Relationship Specialty Start Date End Date Stephanie Cantu PA-C [address] [place] [address] [place] [address] PCP - General Physician Icer Hand 05/07/24 documented as of this encounter
--- OUTSIDE RECORDS SUMMARY | 2024-06-04 10:26 | External Medical Summary | Summary of Care ---
Author Name Unknown Organization [facility] Address [address] [place] [facility] [place] [place] [address] Phone [phone] Care Team Providers Care Direct Of Real Estate Name Role Phone Stephanie Cantu PA-C Primary Care Provider +1- [phone] Reason for Visit * Reason Onset Date Comments Advice 05/28/2024 Encounter Details Date Type Department Care Team ([facility] st Contact Info) Description 05/28/2024 Telephone General Surgery, [facility] [address] [place] [address] León Knox MD [address] [place] [address] Advice Allergies Active Allergy Reactions Criticality Noted Date Comments Iodinated Contrast Media Rash 10/27/2015 Oral canker sores Penicillins Rash 10/28/2003 documented as of this encounter (statuses as of 05/28/2024) Medications Blood Glucose Monitoring Suppl (BLOOD GLUCOSE METER) KIT Test once daily or as directed Dx: E11.9 1 Kit 0 06/05/20 15 Active aspirin 81 MG chewable tablet Take 2 Tabs by mouth daily. 60 Tab 0 04/17/20 16 Active nystatin 967805 UNIT/GM creamIndications: Candidal vulvovaginitis Apply topically to affected area 2 times a day. To affacted area for two weeks. 30 g 2 11/07/19 19 Active Additional Information Patient not taking.Reported on 02/19/2024 Melatonin 10 MG Oral Tablet Take 2 Tablets by mouth at bedtime. Active Acetaminophen 500 MG Oral Tablet (Tylenol) Take 1 Tablet by mouth every 6 hours as needed. Active OneTouch Delica Lancets 33GIndications:Ty pe 2 diabetes mellitus without complications (HCC) USE DIRECTED ONCE DAILY E11.9 100 Each 2 09/15/19 23 Active OneTouch Ultra In Vitro Strip (Glucose Blood)Indications :Type 2 diabetes mellitus without complications (HCC) USE DIRECTED ONCE DAILY E11.9 100 Strip 2 09/15/19 23 Active Warfarin Sodium 2 MG Oral Tablet (Coumadin) Take 1 and 1/2 tablets to 2 tablets by mouth daily or as directed by anticoagulation clinic. 180 Tablet 3 06/27/20 23 Active metFORMIN HCl 1000 MG Oral Tablet (Glucophage)Indic ations:Type 2 diabetes mellitus with hemoglobin A1c goal of less than 7.0% (HCC) Take 1 Tablet by mouth 2 times a day with morning and evening meals 180 Tablet 3 08/29/19 24 Active Losartan Potassium 25 MG Oral Tablet (Cozaar)Indicatio ns:Type 2 diabetes mellitus with hemoglobin A1c goal of less than 7.0% (HCC) Take 1 Tablet by mouth daily. 90 Tablet 3 08/29/19 24 Active Rosuvastatin Calcium 20 MG Oral Tablet (Crestor)Indicati ons:Dyslipidemia, goal LDL below 100 Take 1 Tablet by mouth in the morning. 90 Tablet 3 4 11:38 AM EDT 10/21/19 24 Active Potassium Chloride Dominique ER 20 MEQ Oral Tablet Extended Release Take 1 Tablet by mouth in the morning. 90 Tablet 1 11/22/19 24 Active Metoprolol Succinate ER 25 MG Oral Tablet Extended Release 24 Hour (toPROL XL)Indications:S/ P mitral valve replacement with bioprosthetic valve,S/P pulmonary valve replacement with bioprosthetic valve Take 1 Tablet by mouth in the morning. 90 Tablet 1 4 11:00 AM EDT 01/04/20 24 Active Spironolactone 50 MG Oral Tablet (Aldactone) Take 1 Tablet by mouth in the morning and 1 Tablet at noon and 1 Tablet before bedtime. 270 Tablet 1 4 11:00 AM EDT 01/04/20 24 Active Senna 8.6 MG Oral Tablet TAKE 2 TABLETS BY MOUTH AT BEDTIME NEEDED FOR CONSTIPATION 03/30/20 24 Active traMADol HCl 50 MG Oral Tablet (Ultram) TAKE 1 TABLET BY MOUTH EVERY 6 HOURS FOR 2 DAYS NEEDED FOR PAIN 03/30/20 24 Active Furosemide 40 MG Oral Tablet (Lasix) Take 1 Tablet by mouth in the morning. 100 Tablet 4 11:06 AM EDT 04/15/20 24 Active Warfarin Sodium 2 MG Oral Tablet (Coumadin) Take one and one-half to two tablets by mouth daily or as directed by anticoagulation clinic. 200 Tablet 1 4 11:06 AM EDT 04/15/20 24 Active documented as of this encounter (statuses as [...] 10/06/2023 Overview (02/17/2021): EGFR 84 Atherosclerosis of [place] co ronary artery without angina pectoris 08/12/2019 [...] (Moderna) 12/01/2020,11/03/2020 Pneumococcal Conjugate Vacci ne, 20-valent ([id number]) 05/12/2022 Pneumococcal Polysaccharide PPV23 (Pneumovax) 04/17/2012 Seasonal [...] No 10/02/2023 Does the household have a re lar source of income? (Household - for ages [...] Deandra Colbert RN * Do you have difficulty dressing [...] encounter Miscellaneous Notes * Telephone Encounter - Naomi Santana LPN - 05/28/2024 1:11 PM EST Called patient and told her that if she needs to see somone for thrush it would be her PCP because Dr Knox does not treat that. She already had a script for it and she got it refilled. She said it was because of eating something spicy. * Telephone Encounter - Valerie Shukla OSA - 05/28/2024 11:49 AM EST Patient reported today that she noticed a sensation on her tongue and had white material on it. Patient had leftover medication for thrush and self diagnosed herself and started using it. Ese wantedDr Knox to know to see if he might want patient to see her PCP. documented in this encounter Plan of Treatment Upcoming Encounters Date Type Department Care Team (Late st Contact Info) Description 06/03/2024 1:40 PM EST Laboratory Laboratory [address] [place] [phone] [place] [address] 06/04/2024 6:15 AM EST Anticoagulation [facility] Clinical Pharmacy Services, Vika Palomino [address] [place] [address] [place] [address] [place] [address] 06/07/2024 2:15 PM EST Office Visit General Surgery, [place] [address] [place] [address] Tod Blair MD [address] [place], [place] [id number] 06/10/2024 2:30 PM EST Office Visit Cardiology, [facility] [address] [place] [address] Karen Montemayor PA-C [address] [place] [address] 06/11/2024 9:00 AM EST Cardiac Studies Cardiology [address] [place] [address] [place], Pacer Clinic [facility] [address] [place] [address] 06/19/2024 9:00 AM EST Scheduled Telephone General Surgery, [facility] [address] [place] [address] Santos, Nurse Gen Surg [facility] [place] [address] 06/24/2024 7:15 AM EST Office Visit Non [facility], Operating Room, [place] [address] [facility] [place] [address] León Knox MD [address] [place] [address] 07/04/2024 11:30 AM EST Office Visit General Surgery, [facility] [address] [place] [address] León Knox MD [address] [place] [address] 08/02/2024 9:00 AM EST Office Visit Family Medicine [address] [place] [phone] Georgi Ellison MD [address] [place] [address] [place] [address] 09/03/2024 2:30 PM EST Office Visit Cardiology [address] [place] [address] Ganesh Jennings PA-C [address] [place] [address] 02/14/2025 10:00 AM EDT Nurse Only Ancillary [address] [place] [address] [place], Nurse Annual Wellness [address] [place] [address] [place] [address] 03/25/2025 9:45 AM EDT Imaging Radiology [address] [place] [address] Health Maintenance Due Date Last Done Comments Colonoscopy 2003 Sigmoidoscopy 2003 Hepatitis B Vaccine (1 of 3 - Risk 3-dose series) 2018 Fecal Occult Blood Test 03/12/2021 03/12/2020, 03/25 DXA Scan 2023 11/03/2009, 09/04/2007 COVID-19 Vaccine ( season) 2024 12/01/2020, 11/03/2020 Influenza Vaccine (FLU shot) (#1) 2024 05/15/2023, 05/04/2022, 06/22/2021, Additional history exists HbA1c 04/07/2024 10/06/2023, 11/2 03/2023, 11/18/2022, Additional history exists B-12 06/14/2024 06/14/2023, [...] this encounter Medical Devices Implanted Type Area Financial Health Counselor Device Identifier Shelf Expiration Date Model / Serial / Lot Pramod Han 6 M654g - [id number] Implanted:Qty : 3 on 03/07/2016 by Dylan Puga MD at [place] [facility] N/A: Sternum JNJ : [employer] 12/14/2020 [id number] / / [id number] Valve Heart Mitral Epic 27mm - [id number] Implanted:Qty : 1 on 03/07/2016 by Dylan Puga MD at OR [facility] [place] N/A: Heart ST ERI : CARDIOVASCULAR 01/13/2019 [id number] / [id number] / Valve Heart Aortic Epic 25mm - [id number] Implanted:Qty : 1 on 03/07/2016 by Dylan Puga MD at OR [facility] [place] N/A: Heart ST ERI : CARDIOVASCULAR 11/25/2019 [id number] / [id number] / Lens Li61ao 13.00mm 18.50 - [id number] - [id number] Implanted:Qty : 1 on 02/29/2024 by Jayant Montaño MD at OR [facility] Left: Eye [employer] 09/13/2028 [id number] / [id number] / [id number] Lens Li61ao 13.00mm 19.50 - [id number] - [id number] Implanted:Qty : 1 on 03/07/2024 by Jayant Montaño MD at OR [facility] BAUSCH [employer]OMB 10/14/2028 [id number] / [id number] / [id number] documented as of this encounter Advance Directives * Full Code [...] Advance Directives occurred with: Patient Care Teams Direct Of Real Estate Relationship Specialty Start Date End Date Stephanie Cantu PA-C [address] [place] [address] [place] [address] PCP - General Physician [employer] 05/07/24 documented as of this encounter
--- OUTSIDE RECORDS SUMMARY | 2024-06-04 10:26 | External Medical Summary | Summary of Care ---
Author Name Unknown Organization [facility] Address [address] [place] [address] Phone [phone] Care Team Providers Care Behavioral Sciences Instructor Name Role Phone Stephanie Cantu PA-C Primary Care Provider +1- [phone] Reason for Visit * Reason Comments Outpatient Testing Encounter Details Date Type Department Care Team (Late st Contact Info) Description 06/03/2024 1:40 PM EST Laboratory Laboratory [address] [place] [phone] [address] [place] [address] S/P mitral valve replacement with bioprosthetic valve Allergies Active Allergy Reactions Criticality Noted Date Comments Iodinated Contrast Media Rash 10/27/2015 Oral canker sores Penicillins Rash 10/28/2003 documented as of this encounter (statuses as of 06/03/2024) Medications Blood Glucose Monitoring Suppl (BLOOD GLUCOSE METER) KIT Test once daily or as directed Dx: E11.9 1 Kit 0 06/05/20 15 Active aspirin 81 MG chewable tablet Take 2 Tabs by mouth daily. 60 Tab 0 04/17/20 16 Active nystatin 158348 UNIT/GM creamIndications: Candidal vulvovaginitis Apply topically to [...] 4 11:38 AM EDT 10/21/19 24 Active Metoprolol Succinate ER 25 MG [...] 4 11:06 AM EDT 04/15/20 24 Active Potassium Chloride Dominique ER 20 MEQ Oral Tablet Extended Release Take 1 Tablet by mouth in the morning. 90 Tablet 1 05/28/20 24 Active documented as of this encounter (statuses as of 06/03/2024) Active Problems Problem Noted Date Diagnosed Date [...] as of this encounter (statuses as of 06/03/2024) Resolved Problems Problem Noted Date Diagnosed Date Resolved Date Type 2 diabetes mellitus wit h diabetic chronic kidney disease 03/01/2021 10/15/2021 Systolic congestive heart failure 03/01/2021 10/02/2023 CKD (chronic kidney disease), stage II 02/16/2021 10/06/2023 Overview (02/17/2021): EGFR 84 Atherosclerosis of [place] co ronary artery without angina pectoris 08/12/2019 [...] as of this encounter (statuses as of 06/03/2024) Immunizations Name Administration Dates Next Due COVID-19 mRNA, LNP-s, No Pre serve, 2-Dose Series (Moderna) 12/01/2020,11/03/2020 Pneumococcal Conjugate Vacci ne, 20-valent ([id number]) 05/12/2022 Pneumococcal Polysaccharide PPV23 (Pneumovax) 04/17/2012 Seasonal [...] Deandra Gillis RN documented in this encounter Plan of Treatment Upcoming Encounters Date Type Department Care Team (Late st Contact Info) Description 06/04/2024 6:15 AM EST Anticoagulation [facility], [place] [address] [place] [address] [place] [address] [place] [address] 06/07/2024 2:15 PM EST [facility] [address] [place] [address] Tod Blair MD [address] [place] [address] 06/10/2024 2:30 PM EST Office Visit Cardiology, [facility] [address] [facility] [place] [address] Karen Montemayor PA-C [address] [facility] [place] [address] 06/11/2024 9:00 AM EST Cardiac Studies Cardiology [address] [place] [address] Rajeev Duckworth [facility] 132 [facility] [place] [address] 06/19/2024 9:00 AM EST Scheduled Telephone General Surgery, [facility] [address] [place] [address] Nurse Tom Gen Surg Abdulaziz [address] [place] [address] 06/24/2024 7:15 AM EST Office Visit Non [facility], Operating Room, [address] [place] [address] León Knox MD [address] [place] [address] 07/04/2024 11:30 AM EST Office Visit General Surgery, [facility] [address] [place] [address] León Knox MD [address] [place] [address] 08/02/2024 9:00 AM EST Office Visit Family Medicine [address] [place] [phone] Georgi Ellison MD [address] [place] [address] [place] [address] 09/03/2024 2:30 PM EST Office Visit Cardiology [address] [place] [address] Ganesh Jennings PA-C [address] [place] [address] 02/14/2025 10:00 AM EDT Nurse Only Ancillary [address] [place] [address] Donita, Nurse [address] [place] [address] 03/25/2025 9:45 AM EDT Imaging Radiology [address] [place] [address] Pending Results Name Type Priority Associated Diagnoses Date /Time PT INR Lab Routine S/P mitral valve replacement with bioprosthetic valve 06/03/2024 11:30 AM EST Health Maintenance Due Date Last Done Comments [...] this encounter Medical Devices Implanted Type Area Instructor Physical Education Device Identifier Shelf Expiration Date Model / Serial / Lot Sut Steel 6 M654g - [id number] Implanted:Qty : 3 on 03/07/2016 by Dylan Puga MD at OR [facility] N/A: Sternum JNJ : [employer] 12/14/2020 M654G / / [id number] Valve Heart Mitral Epic 27mm - [id number] Implanted:Qty : 1 on 03/07/2016 by Dylan uPga MD at OR [facility] N/A: Heart ST ERI : CARDIOVASCULAR 01/13/2019 [id number] / [id number] / Valve Heart Aortic Epic 25mm - [id number] Implanted:Qty : 1 on 03/07/2016 by Dylan Puga MD at OR [facility] N/A: Heart ST ERI : CARDIOVASCULAR 11/25/2019 [id number] 00 / [id number] / Lens Li61ao 13.00mm 18.50 - [id number] - [id number] Implanted:Qty : 1 on 02/29/2024 by Jayant Montaño MD at OR [facility] Left: Eye [employer] 09/13/2028 [id number] / [id number] / [id number] Lens Li61ao 13.00mm 19.50 - [id number] - [id number] Implanted:Qty : 1 on 03/07/2024 by Jayant Montaño MD at OR [facility] BA[employer]CH [employer]OM[employer] 10/14/2028 [id number] / [id number] / [id number] documented as of this encounter Visit Diagnoses Diagnosis S/P mitral valve replacement with bioprosthetic valve Heart valve replaced by other means documented in this encounter Advance Directives * [...] 9:40 AM 02/29/2024 3:58 PM This order reflects the patients wishes [...] Advance Directives occurred with: Patient Care Teams Behavioral Sciences Instructor Relationship Specialty Start Date End Date Stephanie Cantu PA-C [address] [place] [address] [place] [address] PCP - General Physician Statistical Technician 05/07/24 documented as of this encounter
--- OUTSIDE RECORDS SUMMARY | 2024-06-04 11:09 | External Medical Summary ---
Author Name Unknown Address Unknown Organization K01:LABORATORY [facility] - [address] [place] [address] Laboratory Report Ordering Provider Test Date Status FABIÁN HAYES 06/03/2024 11:30:44 Final Standing order for pt/inr. < br/>Please draw pt/inr every 1 to 4 weeks as requested
Results to [facility] Anticoagulation Clinic

Warfarin Therapy
INR: 2.0-3.0 conventional anticoagulation
INR: 2.5-3.5 high intensity anticoagulation Observation Date Value Abnormality Reference (Units ) Status PT 06/03/2024 11:30:44 33.3 Above high normal 11 .6-15.2 (seconds) Final INR 06/03/2024 11:30:44 3.2 Above high normal 0. 8-1.2 Final Performing Location LABORATORY [facility] - [address] [address]
--- NOTE | 2024-06-04 13:26 | Gastrointestinal Consultation ---
Date of Consultation June 04, 2024 Assessment & Plan (1) Multiple gallstones: (2) RUQ pain: Plan -Continue with pain management and supportive care -Given concern for chronic cystic duct obstruction and symptoms possibly being related to gallbladder issues she has been following with general surgery. An attempt was reportedly made in the ED to transfer patient to [facility]. [facility] general surgery declined transfer of this patient and advised locally obtaining an MRCP & general surgery consult here. She reportedly cannot have an MRCP because of a pacemaker. -Protonix 40 mg BID -Continue to monitor LFTs Supervising Physician Co-Signing Physician Notes I examined the patient and reviewed patient's chart , laboratory data and imaging studies. I agree with with assessment and plan of care as suggested by advanced practice provider. Possibly passed common bile duct stone with recent transient rise in bilirubin and transaminases. Alternatively LFTs elevated due to chronic liver disea se/alcoholic cirrhosis. Top normal gallbladder wall thickness and small amount of pericholecystic fluid could reflect underlying portal hypertension rather than acute cholecystitis. For recurrent symptoms and if there is a high suspicion for acute cholecystitis percutaneous cholecystostomy could be considered. Due to underlying cirrhosis the patient is a high risk for cholecystectomy. Further management as per surgery. History of Present Illness Reason for Consultation: "pancreatitis" Attending Physician: Erika Pierson MD History of Present Illness Patient is a 64 yo female with PMH of chronic systolic heart failure, pulmonic regurgitation, mitral regurgitation, complete heart block, atrial fibrillation on coumadin, PVD, HTN, HLD, alcoholic cirrhosis, cholelithiasis, DM2, right breast ductal hyperplasia, alcohol abuse, & chronic thrombocytopenia. She presented to the ED after an abrupt onset of RUQ pain, nausea, & vomiting. She had a similar episode 2 months ago and was seen at [facility] ER in [place]. A CT abdomen/pelvis indicated cholelithiasis. A HIDA scan indicated concern for chronic vs acute cholecystitis. She was seen by a general surgeon. She was told she was too high risk to have a cholecystectomy locally and a perc drain was briefly discussed before they decided on an outpatient referral to [facility] general surgery. An attempt to transfer her was made in the ED but general surgery at [facility] refused her transfer. An MRCP was reportedly advised as well as general surgery consultation at this facility. GI has been asked to weigh in for possible pancreatitis. Patient's CT does not demonstrate any abnormalities of the pancreas. She is noted to have cholelithiasis. Lipase minimally elevated at 164. T bili was 1.2 on admission and is now 0.9. AST 116 now 208. ALT 57 now 113. Allergies Allergy/AdvReac Type Severity Reaction Status Date / Time Iodinated Contrast Media Allergy Severe Rash and Verified 06/04/24 02:27 sore mouth with IVP Dye Penicillins Allergy Severe Hives Verified 06/04/24 02:27 Home Medications Medication Instructions Recorded Confirmed Type aspirin 81 mg tablet,delayed 162 mg PO QAM 10/01/19 06/04/24 History release (Pacheco Low Dose Aspirin) furosemide 40 mg tablet 40 mg PO QAM 10/01/19 06/04/24 History metformin 1,000 mg tablet 1,000 mg PO BID 10/01/19 06/04/24 History metoprolol succinate 25 mg 25 mg PO QAM 10/01/19 06/04/24 History tablet,extended release 24 hr rosuvastatin 20 mg tablet 20 mg PO QAM 10/01/19 06/04/24 History spironolactone 50 mg tablet 50 mg PO TID 10/01/19 06/04/24 History warfarin 2 mg tablet 2 mg PO UD 10/01/19 06/04/24 History acetaminophen 325 mg tablet 650 mg PO QID PRN Pain 05/17/24 06/04/24 History (Tylenol) melatonin 10 mg tablet 10 - 30 mg PO HS PRN Sleep 05/17/24 06/04/24 History losartan 25 mg tablet 25 mg PO DAILY 06/04/24 06/04/24 History nystatin 100,000 unit/gram topical 1 applic topical BID 06/04/24 06/04/24 History cream potassium chloride 20 mEq 20 meq PO BID 06/04/24 06/04/24 History tablet,extended release sennosides 8.6 mg tablet (senna) 8.6 mg PO HS PRN Constipation 06/04/24 06/04/24 History tramadol 50 mg tablet 50 mg PO DAILY 06/04/24 06/04/24 History Patient History Medical History (Updated 06/04/24 @ 13:27 by Keri John PA-C) Sleep-disordered breathing Thrush self-diagnosed by patient, see below History of blood transfusion Complex sclerosing lesion of right breast Cholelithiasis [facility] 03/2024, told "had too many stones to count.. 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 Jordan/Ganesh DONOHUE Pacemaker (2016) Medtronic, Implanted 2016 for high-grade AV block after valve replacements Pacer check scheduled 06/11/24 in [place] Follows with Dr. Jordan/Ganesh DONOHUE Cirrhosis ETOH-related Diabetes mellitus, type 2 NIDDM Hyperlipidemia Hypertension controlled, stable per pt Surgical History (Updated 05/28/24 @ 11:24 by Ese Santizo PA-C) S/P pericardiocentesis (2015) + pericardial window; 2016 after pacer insertion History of open heart surgery (2015) [place]- Mitral and pulmonic valve replacements (bioprosthetic) with pulmonary artery aneurysm repair AND PPM placement for post-procedure AV block (2015) History of cardiac cath (2015) "Angiographically normal arteries" Post op Right groin pseudoaneurysm History of breast biopsy (03/2023) Left (benign) History of dilatation and curettage History of bilateral tubal ligation History of colonoscopy S/P thyroid surgery Goiter removal Family History Sister Family history of diabetes mellitus Mother Family history of diabetes mellitus Brother FHx: pancreatic cancer Other No family history of adverse response to anesthesia Social History Smoking Status: Former smoker Tobacco Type: Cigarettes Smoking End Date: quit "about 30 years ago"; Second Hand Exposure: No; Do You Dip or Chew Tobacco: No; Hx Alcohol Use: Yes Alcohol type: beer Hx Substance Use: No Preferred Language: Nigerien Communication Ability: Effective Crossing Gateman Required: No Beliefs That Will Affect Care: None Current Living Situation: Significant Other Current Living Situation Comment: lives with boyfriend Other Information That Helps Us Care for You: No Feels Safe at Home: Yes Safety Concerns: Feels Safe At This Time Assistive Devices: Denture - Upper, Denture - Lower and Glasses Results & Data Vital Signs (Past 12 Hours) Vital Signs Temp Pulse Pulse Resp BP BP Pulse Ox 06/04/24 11:39 36.8 C 74 17 117/65 91 06/04/24 08:00 36.7 C 73 17 102/60 95 06/04/24 03:40 36.6 C 98 H 16 130/77 95 06/04/24 03:31 92 H 06/04/24 03:27 93 H 23 130/77 93 06/04/24 02:59 95 H 22 126/67 95 06/04/24 01:47 96 H 18 113/63 92 06/04/24 01:30 88 18 87/55 L 92 O2 Del Method 06/04/24 11:39 Room Air 06/04/24 08:00 Room Air 06/04/24 03:40 Room Air 06/04/24 03:31 06/04/24 03:27 06/04/24 02:59 06/04/24 01:47 06/04/24 01:30 PG Care Time/CCT Total # of Minutes Spent Total Time Spent with Patient: Total time spent is greater than 50% in coordination of care (as documented) at patient's floor/unit and/or counseling patient: Coding Level of Care Code 46443 INT INP/OBS CARE 3/75MIN Diagnoses Multiple gallstones K80.20 RUQ pain R10.11
--- NOTE | 2024-06-04 14:02 | Ultrasound Report ---
PELVIC ULTRASOUND CLINICAL HISTORY: f/u adnexal cyst on CT COMPARISON STUDY: CT of the abdomen and pelvis June 04, 2024. TECHNIQUE: Transabdominal sonography of the pelvis was performed. Transvaginal imaging was deferred. FINDINGS: The uterus measures 6.7 x 4.5 x 2.9 cm. The endometrium is thickened, measuring 1.7 cm. A 1 .2 cm echogenic focus within the posterior fundus corresponds to a fat-containing lesion on CT. Left ovary was not visualized. There is no free fluid. No adnexal mass was identified. A 4.1 x 4 x 2.6 cm cystic right adnexal lesion corresponds to the lesion on CT. There is mild irregularity and nodulari ty of the wall of this lesion. No color flow is identified within this lesion. IMPRESSION: 1. 4.1 cm cystic right adnexal lesion which corresponds to the finding on CT. Irregularity and mild n odularity of the wall without color flow. This represents a pathologically indeterminate right ovaria n cystic lesion. Nonemergent Gynecologic consultation is recommended. 2. Thickened endometrium, measuring 1.7 cm. This is abnormal in a postmenopausal patient and correlat ion with postmenopausal bleeding and tissue sampling if possible. 3. 1.2 cm echogenic focus within the fundus which corresponds to a fat-containing lesion by CT. This represents a lipoleiomyoma. ACT 112: Positive. There are findings on this exam that require communication between the performing entity and the patient following Patient Test Result Information Act ([place] Act 112) guidelines. Electronically signed by: Smith Hilton M.D. 06/04/2024 2:00 PM
[2024-06-04] MEDS ORDERED: Nursing to Pharmacy Communication SCH (16:30)
--- NOTE | 2024-06-04 19:12 | Surgery Consultation ---
Date of Consultation June 04, 2024 Assessment & Plan (1) Multiple gallstones: The patient has been admitted on the hospitalist service. From surgery perspective we recommend the following: For the present time would not advance patient's diet past liquids Provide analgesics as needed Provide antiemetics as needed Patient has been seen by gastroenterology. It is recommended that the patient undergo an MRCP however due to the patient's pacemaker this cannot be performed. There is concern the patient may have potentially passed a common bile duct stone which resulted in her elevated LFTs. This service did comment that the patient has an underlying history of cirrhosis and would therefore be considered a high surgical risk if it is felt that cholecystectomy was advisable As the patient is considered high surgical risk, would recommend repeating her LFTs on 06/05/2024. If there is continued rise of her LFTs she may necessitate an ERCP as an MRCP is not able to be done due to her pacemaker If it is determined that patient does require intervention to her gallbladder she may benefit from percutaneous cholecystostomy due to her underlying medical comorbidities In addition the patient was noted to have a slight elevation of her lipase and this should be repeated as well to ensure that she does not have any evidence of worsening pancreatitis. It would be beneficial to hold patient's Coumadin (if clinically able) as she does have therapeutic INR and would like to decrease any risk of procedural bleeding in the event that this needs to be done (her Coumadin is currently on holdshe does note that her most recent dose was on 06/02/2024) Additional recommendations will be forthcoming based on her clinical course as it unfolds Supervising Physician Co-Signing Physician Notes pnt d/w JACQUELIN Coles, labs and imaging reviewed, agree w/ above. cholelithiasis and possible gallstone pancreatitis/ choledocholithiasis, h/o cirrhosis, ascad, has pacer so not able to get MRCP. was scheduled to be evaluated in [place] for possible lap david. Will see how she does with diet, may f/u in [facility] as outpnt. History of Present Illness Reason for Consultation: Cholelithiasis Attending Physician: Vicente Castellanos MD History of Present Illness This is a 64-year-old female who presented to the emergency department secondary to abdominal pain. Approximately 2 months ago the patient did have some right- sided abdominal discomfort and was evaluated at [facility] and [place], [place]. She underwent a CT scan abdomen pelvis at that time as well as an ultrasound that showed cholelithiasis. An outpatient surgical evaluation was recommended. The patient was seen by Dr. Jefferson of [facility] general surgery here in [place]. An outpatient HIDA scan was recommended and this was completed which showed that the gallbladder did not fill and there was concern the patient may have had functional gallbladder disease, chronic cholecystitis, or acute cholecystitis. It was felt the patient was a high surgical risk due to multiple medical comorbidities and he felt patient would best be served by evaluation by general surgeon at a tertiary care facility. The patient notes that she was scheduled to see a general surgeon at [facility] in [place], [place] this coming Monday on 06/07/2024. Prior to the patient being able to be evaluated by general surgery at [facility] she presented to the emergency department at [facility] on 06/04/2024 secondary to right upper quadrant pain. She notes that the pain began approximately 1 hour after eating some ham. She did not have any fevers but did report some chills. She also had some nausea or vomiting. She did not report any radiation or modifying factors to her pain. The treating emergency room physician did reach out to general surgery at [facility] and they did not feel transfer was warranted at this time and they recommended general surgery evaluation about any Medical Center. The patient has since been admitted to [facility] for further evaluation. Of note, the patient notes that her pain has improved somewhat and she has thus far tolerated the liquid diet without worsening of her pain. Since arrival to [facility] the patient has had labs and imaging which I independently reviewed. A gallbladder ultrasound showed gallstones within the gallbladder however there is no pericholecystic fluid. The common bile duct was noted to be dilated. Her liver was noted to be enlarged which was felt to be indicative of hepatocellular disease. A chest x- ray showed cardiomegaly. A CT scan of the abdomen pelvis showed the patient had chronic liver disease with periportal portosystemic collaterals. She was noted to have gallstones without evidence of cholecystitis. A pelvic ultrasound was performed where patient was noted to have a 4.1 cm right adnexal cyst. Labs included CBC were white blood cell count was 3.5. Hemoglobin and hematocrit were 9.5 and 30.2. Platelet count is 102,000. Her INR most recently was from the morning of 06/04/2024 and was noted to be 3.6. Chemistry profile showed sodium and potassium are 141 and 3.1. Her BUN and creatinine are both normal. At time of presentation her bilirubin is 1.2 but this has improved to 0.9. She did have elevation of her AST and ALT with present values at 208 and 113 respectively (both of these values have increased from time of initial presentation. Her alkaline phosphatase level is 135. Patient did have a slight elevation of her lipase at 164. I did question the patient on her symptomatology before this admission and she notes that she was having very frequent right upper quadrant abdominal pain that did not seem to be related to meals. Is also important to recognize that the patient does carry a significant cardiovascular history. The patient was noted to have open heart surgery where she underwent a mitral valve replacement in February 2016 along with a pulmonary valve replacement and a pulmonary artery aneurysm arterioplasty. Patient also has a dual-chamber pacemaker placed in February 2016 secondary to high-grade AV block. In addition, the patient has an underlying history of atrial fibrillation. She does note with her activities of daily living she does not typically get chest pain or shortness of breath. At the time of my interview she was resting comfortably in bed and she was in no distress Allergies Allergy/AdvReac Type Severity Reaction Status Date / Time Iodinated Contrast Media Allergy Severe Rash and Verified 06/04/24 02:27 sore mouth with IVP Dye Penicillins Allergy Severe Hives Verified 06/04/24 02:27 Home Medications Medication Instructions Recorded Confirmed Type aspirin 81 mg tablet,delayed 162 mg PO QAM 10/01/19 06/04/24 History release (Pacheco Low Dose Aspirin) furosemide 40 mg tablet 40 mg PO QAM 10/01/19 06/04/24 History metformin 1,000 mg tablet 1,000 mg PO BID 10/01/19 06/04/24 History metoprolol succinate 25 mg 25 mg PO QAM 10/01/19 06/04/24 History tablet,extended release 24 hr rosuvastatin 20 mg tablet 20 mg PO QAM 10/01/19 06/04/24 History spironolactone 50 mg tablet 50 mg PO TID 10/01/19 06/04/24 History warfarin 2 mg tablet 2 mg PO UD 10/01/19 06/04/24 History acetaminophen 325 mg tablet 650 mg PO QID PRN Pain 05/17/24 06/04/24 History (Tylenol) melatonin 10 mg tablet 10 - 30 mg PO HS PRN Sleep 05/17/24 06/04/24 History losartan 25 mg tablet 25 mg PO DAILY 06/04/24 06/04/24 History nystatin 100,000 unit/gram topical 1 applic topical BID 06/04/24 06/04/24 History cream potassium chloride 20 mEq 20 meq PO BID 06/04/24 06/04/24 History tablet,extended release sennosides 8.6 mg tablet (senna) 8.6 mg PO HS PRN Constipation 06/04/24 06/04/24 History tramadol 50 mg tablet 50 mg PO DAILY 06/04/24 06/04/24 History Patient History Medical History Sleep-disordered breathing Thrush self-diagnosed by patient, see below History of blood transfusion Complex sclerosing lesion of right breast Cholelithiasis [facility] ER 03/2024, told "had too many stones to count.. 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 Jordan/Ganesh DONOHUE Pacemaker (2015) [employer], Implanted 2015 for high-grade AV block after valve replacements Pacer check scheduled 06/11/24 in [place] Follows with Dr. Jordan/aGnesh DONOHUE Cirrhosis ETOH-related Diabetes mellitus, type 2 NIDDM Hyperlipidemia Hypertension controlled, stable per pt Surgical History S/P pericardiocentesis (2015) + pericardial window; 2016 after pacer insertion History of open heart surgery (2015) [place]- Mitral and pulmonic valve replacements (bioprosthetic) with pulmonary artery aneurysm repair AND PPM placement for post-procedure AV block (2015) History of cardiac cath (2015) "Angiographically normal arteries" Post op Right groin pseudoaneurysm History of breast biopsy (03/2023) Left (benign) History of dilatation and curettage History of bilateral tubal ligation History of colonoscopy S/P thyroid surgery Goiter removal Family History Sister Family history of diabetes mellitus Mother Family history of diabetes mellitus Brother FHx: pancreatic cancer Other No family history of adverse response to anesthesia Social History Smoking Status: Former smoker Tobacco Type: Cigarettes Smoking End Date: quit "about 30 years ago"; Second Hand Exposure: No; Do You Dip or Chew Tobacco: No; Hx Alcohol Use: Yes Alcohol type: beer Hx Substance Use: No Preferred Language: Andorran Communication Ability: Effective Storage And Backup Administrator Required: No Beliefs That Will Affect Care: None Current Living Situation: Significant Other Current Living Situation Comment: lives with boyfriend Other Information That Helps Us Care for You: No Feels Safe at Home: Yes Safety Concerns: Feels Safe At This Time Assistive Devices: Denture - Upper, Denture - Lower and Glasses Review of Systems Review of Systems: All systems reviewed & are unremarkable except as noted in HPI & below Physical Exam Constitutional: WD/WN, vitals as above Eyes: + anicteric sclerae ENMT: Ears: no hearing impairment and no external ear abnormality Sublingual jaundice is absent Neck: trachea midline Respiratory: normal respiratory effort; no respiratory distress and no labored breathing Cardiovascular: Rate/Rhythm: regular rate and regular rhythm Gastrointestinal (Abdomen): Abdomen is soft and nondistended. There is no rigidity. There is no tenderness or guarding. The patient did have pain with palpation in the right upper quadrant. Musculoskeletal: No calf tenderness Skin: no rashes Neurologic: moves all extremities Psychiatric: A+Ox3, euthymic affect Results & Data Vital Signs (Past 12 Hours) Vital Signs Temp Pulse Resp BP Pulse Ox O2 Del Method 06/04/24 15:14 36.7 C 68 18 120/54 L 96 Room Air 06/04/24 11:39 36.8 C 74 17 117/65 91 Room Air 06/04/24 08:00 36.7 C 73 17 102/60 95 Room Air PG Care Time/CCT Total # of Minutes Spent Total Time Spent with Patient: Total time spent is greater than 50% in coordination of care (as documented) at patient's floor/unit and/or counseling patient: Coding Level of Care Code 13343 INT INP/OBS CARE MIN Diagnoses Multiple gallstones K80.20
[2024-06-04] MEDS: MELATONIN 3 MG TAB PO PRN (22:03)
[2024-06-05 06:37] LABS: Basophils # (auto) 0.02 K/uL (0.00-0.20); Basophils % (auto) 0.6 %; Eosinophils # (auto) 0.06 K/uL (0.00-0.50); Eosinophils % (auto) 1.7 %; Hematocrit (blood only) 31.5 % (37.0-47.0); Hemoglobin 9.5 g/dl (12.0-16.0); Immature Granulocytes # (auto) 0.01 K/uL (0.01-0.20); Immature Granulocytes % (auto) 0.3 %; Lymphocytes # (auto) 1.32 K/uL (1.20-3.40); Lymphocytes % (auto) 37.7 %; Mean Corpuscular Hemoglobin 23.3 pg (25.0-34.0); Mean Corpuscular Hgb Conc 30.2 g/dL (32.0-36.0); Mean Corpuscular Volume 77.2 fL (80.0-100.0); Mean Platelet Volume 8.6 fL (9.4-12.4); Monocytes # (auto) 0.23 K/uL (0.11-0.59); Monocytes % (auto) 6.6 %; Neutrophils # (auto) 1.86 K/uL (1.40-6.50); Neutrophils % (auto) 53.1 %; Platelet Count 111 K/uL (130-400); RDW Coefficient of Variation 14.8 % (11.5-14.5); RDW Standard Deviation 41.1 fL (36.4-46.3); Red Blood Count 4.08 M/uL (4.20-5.40)
[2024-06-05 06:53] LABS: Albumin Globulin Ratio 2.3 (0.9-2); BUN Creatinine Ratio 15.5 (10-20); Bilirubin,Total 1.3 mg/dl (0.2-1.0); Calcium 10.4 mg/dl (8.6-10.3); Creatinine Clr Calc Pharmacy 82.1 ml/min; Globulin 2.2 gm/dl (2.5-4.0); Magnesium 1.9 mg/dl (1.7-2.4); Potassium 3.4 mmol/L (3.5-5.1); Total Protein 7.2 gm/dl (6.0-8.3)
--- NOTE | 2024-06-05 08:17 | Surgery Progress Note ---
Date of Service June 05, 2024 Assessment & Plan (1) Multiple gallstones: Plan: Pt with history of cirrhosis here with abdominal pain and gallstones LFTs show Tb up slightly to 1.3 (0.9), AST down to 76, ALT 76, AlkP 115. Vitals stable Abdominal pain overall improved If no plans per GI we can possibly trial patient on a diet and see if we can get her to her outpt appt with brandie on monday No plans for surgical intervention here given her PMH Admission and Anticipated Discharge Date Admission Date: June 04, 2024 Supervising Physician Co-Signing Physician Notes pnt S&E, labs and imaging reviewed, agree w/ above. Cirrhosis, cholelithiasis, pancreatitis and transaminitis, not able to get MRCP due to pacer. Still sore in R flank. LFT's and lipase downtrending, tbili up slightly. wbc normal, inr 2. abd soft, mildly ttp in RUQ and epigastrium. Diet as tolerated, if okay and labs normalizing then can d/c and follow up with surgery as scheduled in [place]. May need ERCP if lfts worsen. high risk due to cirrhosis. Subjective Patient feeling better. Pain improved. + flatus/BMs. No nausea/vomiting Physical Exam Physical Exam: awake, no distress Gastrointestinal (Abdomen): Inspection/Auscultation: abdomen not distended Percussion/Palpation: + abdomen tender (mild discomfort to palpation in epigastric region) and abdomen soft; no guarding Results & Data Vital Signs (Past 12 Hours) Vital Signs Temp Pulse Pulse Resp BP Pulse Ox O2 Del Method 06/05/24 07:00 97.5 F L 64 16 126/67 94 Room Air 06/05/24 02:47 97.7 F 72 18 123/74 94 Room Air 06/04/24 22:56 97.7 F 81 18 112/66 95 Room Air PG Care Time/CCT Total # of Minutes Spent Total Time Spent with Patient: Total time spent is greater than 50% in coordination of care (as documented) at patient's floor/unit and/or counseling patient: Coding Level of Care Code 48997 SUB INP/OBS CARE 1/25MIN Diagnoses Multiple gallstones K80.20
[2024-06-05] MEDS: THIAMINE HCL 100 MG TAB PO SCH (08:39)
--- NOTE | 2024-06-05 10:03 | Hospitalist Progress Note ---
Date of Service June 05, 2024 Assessment & Plan (1) Hypotension: Plan: Per admitting provider with addendum: Transient hypotension Biliary pancreatitis History cholelithiasis Rule out CBD obstruction given abnormal LFTs No sepsis for now admitted to PCU IV albumin in place of crystalloid for IVF given pulmonary congestion on imaging CT abdomen pelvis re: abdominal pain with abnormal LFTs rule out CBD obstruction (Patient unable to undergo MRCP due to PPM.) 1. Chronic liver disease with periportal portosystemic collaterals. 2. Cholelithiasis, without imaging evidence of cholecystitis. 3. Right adnexal cyst, recommend ultrasound correlation. 4. Small uterine leiomyomas. GI consult re: pancreatitis General surgery consulted - appreciate their recs Hold Coumadin for now in anticipation of procedure R Adnexal cyst US obtained 1. 4.1 cm cystic right adnexal lesion which corresponds to the finding on CT. Irregularity and mild nodularity of the wall without color flow. This represents a pathologically indeterminate right ovarian cystic lesion. Nonemergent Gynecologic consultation is recommended. 2. Thickened endometrium, measuring 1.7 cm. This is abnormal in a postmenopausal patient and correlation with postmenopausal bleeding and tissue sampling if possible. 3. 1.2 cm echogenic focus within the fundus which corresponds to a fat- containing lesion by CT. This represents a lipoleiomyoma. 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 SCDs if INR less than 2 while Coumadin on hold re: thrombocytopenia, possible procedure Full code Admission and Anticipated Discharge Date Admission Date: June 04, 2024 Subjective Pt seen in follow up of abd. pain, gallstones/ gallstone pancreatitis Currently sitting up in bed in NAD reports some pain in her back, and RUQ - says it comes and goes no fever, chills, chest pain or shortness of breath GI and surgery consulted -> pt is supposed to see gen. surgery in [facility] on Monday Monitor LFTs Review of Systems Review of Systems: All systems reviewed & are unremarkable except as noted in Subjective Physical Exam Physical Exam: GENERAL: WD/ WN F in NAD HEENT: NC/AT, EOMI NECK : Supple, no tenderness CHEST : Decreased breath sounds, no tenderness HEART : RRR, systolic murmur ABDOMEN: Some distention, +RUQ tenderness EXTREMITIES : Minimal LE swelling, no LE tenderness, moves extremities NEUROLOGIC : awake, alert, speech fluent, answers appropriately, moves extremities SKIN: warm, dry Results & Data Results & Data Vital Signs (Past 12 Hours) Vital Signs Temp Pulse Pulse Resp BP Pulse Ox O2 Del Method 06/05/24 07:00 36.4 C L 64 16 126/67 94 Room Air 06/05/24 02:47 36.5 C 72 18 123/74 94 Room Air 06/04/24 22:56 36.5 C 81 18 112/66 95 Room Air Laboratory Results 06/05/24 06/05/24 06/04/24 Range/Units 06:11 05:21 20:14 WBC 3.50 L (4.8-10.8) K/ul RBC 4.08 L (4.20-5.40) M/uL Hgb 9.5 L (12.0-16.0) g/dl Hct 31.5 L (37.0-47.0) % MCV 77.2 L (80.0-100.0) fL MCH 23.3 L (25.0-34.0) pg MCHC 30.2 L (32.0-36.0) g/dL RDW Std Deviation 41.1 (36.4-46.3) fL RDW Coeff of Marissa 14.8 H (11.5-14.5) % Plt Count 111 L (130-400) K/uL MPV 8.6 L (9.4-12.4) fL Immature Gran % (Auto) 0.3 % Neut % (Auto) 53.1 % Lymph % (Auto) 37.7 % Bucks % (Auto) 6.6 % Eos % (Auto) 1.7 % Baso % (Auto) 0.6 % Neut # (Auto) 1.86 (1.40-6.50) K/uL Lymph # (Auto) 1.32 (1.20-3.40) K/uL Bucks # (Auto) 0.23 (0.11-0.59) K/uL Eos # (Auto) 0.06 (0.00-0.50) K/uL Baso # (Auto) 0.02 (0.00-0.20) K/uL Immature Gran # (Auto) 0.01 (0.01-0.20) K/uL PT 20.0 H (9.0-12.0) Seconds INR 2.0 H (0.9-1.1) Sodium 141 (136-145) mmol/L Potassium 3.4 L (3.5-5.1) mmol/L Chloride 105 (98-107) mmol/L Carbon Dioxide 27 (21-32) mmol/L Anion Gap 9 (3-11) BUN 9 (6-23) mg/dl Creatinine 0.58 L (0.6-1.2) mg/dl Est Cr Clr Drug Dosing 82.1 ml/min eGFR 99.74 BUN/Creatinine Ratio 15.5 (10-20) Glucose 91 (70-99(Fasting)) mg/dl POC Glucose 99 116 H (70-99) mg/dl Calcium 10.4 H (8.6-10.3) mg/dl Phosphorus 4.0 (2.5-4.9) mg/dl Magnesium 1.9 (1.7-2.4) mg/dl Total Bilirubin 1.3 H (0.2-1.0) mg/dl AST 76 H (13-39) U/L ALT 76 H (7-52) U/L Alkaline Phosphatase 115 H (34-104) U/L Total Protein 7.2 (6.0-8.3) gm/dl Albumin 5.0 (3.4-5.0) gm/dl Globulin 2.2 L (2.5-4.0) gm/dl Albumin/Globulin Ratio 2.3 H (0.9-2) 06/04/24 06/04/24 Range/Units 16:26 11:37 WBC (4.8-10.8) K/ul RBC (4.20-5.40) M/uL Hgb (12.0-16.0) g/dl Hct (37.0-47.0) % MCV (80.0-100.0) fL MCH (25.0-34.0) pg MCHC (32.0-36.0) g/dL RDW Std Deviation (36.4-46.3) fL RDW Coeff of Marissa (11.5-14.5) % Plt Count (130-400) K/uL MPV (9.4-12.4) fL Immature Gran % (Auto) % Neut % (Auto) % Lymph % (Auto) % Bucks % (Auto) % Eos % (Auto) % Baso % (Auto) % Neut # (Auto) (1.40-6.50) K/uL Lymph # (Auto) (1.20-3.40) K/uL Bucks # (Auto) (0.11-0.59) K/uL Eos # (Auto) (0.00-0.50) K/uL Baso # (Auto) (0.00-0.20) K/uL Immature Gran # (Auto) (0.01-0.20) K/uL PT (9.0-12.0) Seconds INR (0.9-1.1) Sodium (136-145) mmol/L Potassium (3.5-5.1) mmol/L Chloride (98-107) mmol/L Carbon Dioxide (21-32) mmol/L Anion Gap (3-11) BUN (6-23) mg/dl Creatinine (0.6-1.2) mg/dl Est Cr Clr Drug Dosing ml/min eGFR BUN/Creatinine Ratio (10-20) Glucose (70-99(Fasting)) mg/dl POC Glucose 106 H 100 H (70-99) mg/dl Calcium (8.6-10.3) mg/dl Phosphorus (2.5-4.9) mg/dl Magnesium (1.7-2.4) mg/dl Total Bilirubin (0.2-1.0) mg/dl AST (13-39) U/L ALT (7-52) U/L Alkaline Phosphatase (34-104) U/L Total Protein (6.0-8.3) gm/dl Albumin (3.4-5.0) gm/dl Globulin (2.5-4.0) gm/dl Albumin/Globulin Ratio (0.9-2) Medications Administered Current Inpatient Medications Acetaminophen (Acetaminophen 500 Mg Tab) 500 mg PO Q6H PRN PRN Reason: fever/pain Stop: 07/04/24 01:13 Last Admin: 06/04/24 22:03 Dose: 500 mg Dextrose (Dextrose 50% 50 Ml Syringe) 25 - 50 ml IV UD PRN; Protocol PRN Reason: Hypoglycemia Protocol Stop: 07/04/24 02:28 Folic Acid (Folic Acid 1 Mg Tab) 1 mg PO QAM OCTAVIA Stop: 07/04/24 08:59 Last Admin: 06/05/24 08:39 Dose: 1 mg Glucagon (Glucagon For Inj 1 Mg Vial) 1 mg SQ UD PRN; Protocol PRN Reason: Hypoglycemia Protocol Stop: 07/04/24 02:28 Glucose (Glucose 40% Gel 15 Gm Tube) 15 - 30 gm PO UD PRN; Protocol PRN Reason: Hypoglycemia Protocol Stop: 07/04/24 02:28 Glucose (Glucose 10 Tab/Tube) 4 - 8 tab PO UD PRN; Protocol PRN Reason: Hypoglycemia Protocol Stop: 07/04/24 02:28 Promethazine HCl (Phenergan) 6.25 mg in 50.25 mls @ 201 mls/hr IV Q6H PRN PRN Reason: Nausea And Vomiting Stop: 07/04/24 01:13 Last Infusion: 06/04/24 02:29 Dose: Infused Albumin Human (Albumin 25%) 25 gm in 100 mls @ 50 mls/hr IV Q8H OCTAVIA Stop: 06/07/24 07:59 Last Admin: 06/05/24 08:39 Dose: 50 mls/hr Insulin Aspart (Insulin Aspart Per Unit Charge) 0 units SC ACHS [facility] Stop: 07/04/24 02:29 Last Admin: 06/05/24 06:26 Dose: Not Given Lorazepam (Lorazepam 2 Mg/1 Ml Vial) 1 mg IV ONE PRN; Protocol PRN Reason: EtoH Withdrawal AWSS 6-10 Lorazepam (Lorazepam 0.5 Mg Tab) 0.5 mg PO TID PRN PRN Reason: Anxiety Stop: 07/04/24 01:13 Melatonin (Melatonin 3 Mg Tab) 9 mg PO HS PRN PRN Reason: Sleep Stop: 07/04/24 02:54 Last Admin: 06/04/24 22:03 Dose: 9 mg Metoprolol Succinate (Metoprolol Succ 25mg Ext Rel Tab) [facility] Stop: 07/04/24 08:59 Last Admin: 06/05/24 08:39 Dose: 25 mg Miscellaneous (Carbohydrates For Hypoglycemia ) 15 - 30 gm PO UD PRN PRN Reason: Hypoglycemia Protocol Stop: 07/04/24 02:28 Multivitamins (Multivitamin Tab) [facility] Stop: 07/04/24 08:59 Last Admin: 06/05/24 08:39 Dose: 1 tab Oxycodone HCl (Oxycodone Hcl Ir 5 Mg Tab (Immediate Release)) 5 mg PO Q4H PRN PRN Reason: Pain Stop: 06/18/24 01:13 Sennosides (Senna 8.6 Mg Tab) 8.6 mg PO HS PRN PRN Reason: Constipation Stop: 07/04/24 02:54 Thiamine HCl (Thiamine Hcl 100 Mg Tab) 100 mg PO [facility] Stop: 07/05/24 08:59 Last Admin: 06/05/24 08:39 Dose: 100 mg
--- NOTE | 2024-06-05 10:33 | Communication Note ---
Date of Service: June 05, 2024 Patient is a 64 yo female with multiple gallstones. GI was consulted yesterday for possible pancreatitis though patient no longer was having abdominal pain, CT pancreas was normal, & lipase was only minimally elevated. She was improving with supportive care. She has a history of cirrhosis (Possibly MASH/cardiogenic). She had normal LFTs on 05/28. When she was admitted to the hospital after the abrupt onset of her RUQ, her T bili was minimally elevated and AST/ALT were bumped as well. INR improved. No further GI interventions planned. If patient's bilirubin/LFTs were to worsen, would need to consider ERCP as patient cannot have an MRCP. Continue to trend LFTs. She has outpatient surgical evaluation planned. GI will sign off at this time.
[2024-06-06 07:08] LABS: Hemoglobin 9.6 g/dl (12.0-16.0); Mean Corpuscular Hemoglobin 23.4 pg (25.0-34.0); Mean Corpuscular Volume 75.6 fL (80.0-100.0); Mean Platelet Volume 8.9 fL (9.4-12.4); Platelet Count 115 K/uL (130-400); RDW Coefficient of Variation 14.7 % (11.5-14.5); RDW Standard Deviation 40.1 fL (36.4-46.3); White Blood Count 4.22 K/ul (4.8-10.8)
[2024-06-06 07:37] LABS: INR 1.4 (0.9-1.1); Prothrombin Time 15.1 Seconds (9.0-12.0)
[2024-06-06 07:42] LABS: Albumin Globulin Ratio 2.6 (0.9-2); Albumin Level 5.5 gm/dl (3.4-5.0); BUN Creatinine Ratio 17.5 (10-20); Bilirubin,Total 1.5 mg/dl (0.2-1.0); Calcium 10.7 mg/dl (8.6-10.3); Creatinine Clr Calc Pharmacy 83.6 ml/min; Globulin 2.1 gm/dl (2.5-4.0); Magnesium 1.7 mg/dl (1.7-2.4); Potassium 3.4 mmol/L (3.5-5.1); Total Protein 7.6 gm/dl (6.0-8.3)
[2024-06-06 09:30] LABS: Bilirubin Direct 0.4 mg/dl (0-0.2)
--- NOTE | 2024-06-06 12:10 | Surgery Progress Note ---
Date of Service June 06, 2024 Assessment & Plan (1) Multiple gallstones: Plan: Cholelithiasis with no obvious cholecystitis, questionable passed stone in the setting of cirrhosis. Not eligible for MRCP due to pacemaker. She has an appointment scheduled Monday for evaluation for cholecystectomy in [place], but will likely not make it due to weather. Her bilirubin was up to 1.5, though mostly unconjugated and likely from her liver. She is a high risk surgical candidate due to her cirrhosis. Advance to low-fat diet No surgical intervention planned for the time being Okay to DC if tolerates regular diet from general surgery standpoint Follow-up with surgery in [place] to discuss possible cholecystectomy given her cirrhosis and other medical comorbidities. (2) RUQ pain: (3) Cirrhosis: (4) Atrial fibrillation: (5) Pacemaker: (6) Diabetes mellitus, type 2: Admission and Anticipated Discharge Date Admission Date: June 04, 2024 Subjective Patient admitted with abdominal pain, cholelithiasis, mild transaminitis and lipase elevation, with a history of cirrhosis. She is feeling better today, no abdominal pain, tolerating full liquids and would like regular diet. Physical Exam Constitutional: WD/WN, vitals as above Gastrointestinal (Abdomen): normal bowel sounds, soft, nontender, no hepatosplenomegaly Results & Data Vital Signs (Past 12 Hours) Vital Signs Temp Pulse Pulse Resp BP Pulse Ox O2 Del Method 06/06/24 11:15 36.6 C 62 12 128/65 93 Room Air 06/06/24 07:54 36.8 C 06/06/24 07:30 60 06/06/24 07:15 70 18 120/77 92 Room Air 06/06/24 03:17 36.5 C 69 18 119/68 95 Room Air Laboratory Results Laboratory Results - last 24 hr 06/05/24 06/05/24 06/06/24 16:34 20:32 06:05 WBC 4.22 L RBC 4.10 L Hgb 9.6 L Hct 31.0 L MCV 75.6 L MCH 23.4 L MCHC 31.0 L RDW Std Deviation 40.1 RDW Coeff of Marissa 14.7 H Plt Count 115 L MPV 8.9 L PT 15.1 H INR 1.4 H Sodium 143 Potassium 3.4 L Chloride 105 Carbon Dioxide 27 Anion Gap 11 BUN 10 Creatinine 0.57 L Est Cr Clr Drug Dosing 83.6 eGFR 100.16 BUN/Creatinine Ratio 17.5 Glucose 101 H POC Glucose 95 106 H Calcium 10.7 H Phosphorus 4.0 Magnesium 1.7 Total Bilirubin 1.5 H Direct Bilirubin AST ALT Alkaline Phosphatase Total Protein Albumin Globulin Albumin/Globulin Ratio 06/06/24 06/06/24 06/06/24 06:05 06:05 07:13 WBC RBC Hgb Hct MCV MCH MCHC RDW Std Deviation RDW Coeff of Marissa Plt Count MPV PT INR Sodium Potassium Chloride Carbon Dioxide Anion Gap BUN Creatinine Est Cr Clr Drug Dosing eGFR BUN/Creatinine Ratio Glucose POC Glucose 104 H Calcium Phosphorus Magnesium Total Bilirubin Cancelled Direct Bilirubin 0.4 H Cancelled AST 41 H ALT 51 Alkaline Phosphatase 101 Total Protein 7.6 Albumin 5.5 H Globulin 2.1 L Albumin/Globulin Ratio 2.6 H 06/06/24 11:36 WBC RBC Hgb Hct MCV MCH MCHC RDW Std Deviation RDW Coeff of Marissa Plt Count MPV PT INR Sodium Potassium Chloride Carbon Dioxide Anion Gap BUN Creatinine Est Cr Clr Drug Dosing eGFR BUN/Creatinine Ratio Glucose POC Glucose 109 H Calcium Phosphorus Magnesium Total Bilirubin Direct Bilirubin AST ALT Alkaline Phosphatase Total Protein Albumin Globulin Albumin/Globulin Ratio PG Care Time/CCT Total # of Minutes Spent Total Time Spent with Patient: Total time spent is greater than 50% in coordination of care (as documented) at patient's floor/unit and/or counseling patient: Coding Level of Care Code 66589 SUB INP/OBS CARE 235MIN Diagnoses Multiple gallstones K80.20 RUQ pain R10.11 Cirrhosis K74.60 Atrial fibrillation I48.91 Pacemaker Z95.0 Diabetes mellitus, type 2 E11.9
[2024-06-06] MEDS ORDERED: WARFARIN SOD 2 MG TAB PO SCH (15:00)
[2024-06-06] MEDS: POTASSIUM CHLORIDE CRTAB 20 MEQ TABCR PO STA (17:01)
[2024-06-06] MEDS: WARFARIN SOD 3 MG TAB PO SCH (17:01)
[2024-06-07 03:26] VITALS: RESP 17
[2024-06-07 06:24] LABS: INR 1.3 (0.9-1.1); Prothrombin Time 13.9 Seconds (9.0-12.0)
--- NOTE | 2024-06-07 07:58 | Hospitalist Progress Note ---
Date of Service June 06, 2024 (late entry) Assessment & Plan (1) Hypotension: Plan: Per admitting provider with addendum: Transient hypotension Biliary pancreatitis History cholelithiasis Rule out CBD obstruction given abnormal LFTs No sepsis for now admitted to PCU IV albumin in place of crystalloid for IVF given pulmonary congestion on imaging CT abdomen pelvis re: abdominal pain with abnormal LFTs rule out CBD obstruction (Patient unable to undergo MRCP due to PPM.) 1. Chronic liver disease with periportal portosystemic collaterals. 2. Cholelithiasis, without imaging evidence of cholecystitis. 3. Right adnexal cyst, recommend ultrasound correlation. 4. Small uterine leiomyomas. GI consult re: pancreatitis General surgery consulted - 06/06 tbili 1.5, ast, alt down - discussed labs and plan with GI and surgery over the phone, will obtain stool studies, ok to Ri home if negat. Per surgery - Cholelithiasis with no obvious cholecystitis, questionable passed stone in the setting of cirrhosis. Not eligible for MRCP due to pacemaker. She has an appointment scheduled Monday for evaluation for cholecystectomy in [place], but will likely not make it due to weather. Her bilirubin was up to 1.5, though mostly unconjugated and likely from her liver. She is a high risk surgical candidate due to her cirrhosis. Advance to low-fat diet No surgical intervention planned for the time being Okay to DC if tolerates regular diet from general surgery standpoint Follow-up with surgery in [place] to discuss possible cholecystectomy given her cirrhosis and other medical comorbidities. R Adnexal cyst US obtained 1. 4.1 cm cystic right adnexal lesion which corresponds to the finding on CT. Irregularity and mild nodularity of the wall without color flow. This represents a pathologically indeterminate right ovarian cystic lesion. Nonemergent Gynec ologic consultation is recommended. 2. Thickened endometrium, measuring 1.7 cm. This is abnormal in a postmenopausal patient and correlation with postmenopausal bleeding and tissue sampling if possible. 3. 1.2 cm echogenic focus within the fundus which corresponds to a fat- containing lesion by CT. This represents a lipoleiomyoma. - needs Outpt follow up w/ gynecology Hypomagnesemia, Replace electrolytes Chronic conditions: chronic systolic heart failure (EF 45%, TTE 2023), equivocal volume status, some congestion on imaging congenital heart disease (pulmonic regurgitation)/mitral regurgitation status post MVR/PVR complete heart block status post PPM hx postop A-fib on Coumadin, INR supratherapeutic PVD status post surgery hyperlipidemia, on statin Rx alcoholic cirrhosis, some signs of fluid overload right breast atypical ductal hyperplasia, patient follows with local breast navarro rgeon DM2 on oral medications, well-controlled as of recent hemoglobin A1c of 6.5 this month, ISS BG goal 110-140 chronic anemia, hemoglobin at baseline chronic thrombocytopenia likely secondary to liver disease alcohol abuse as per records, AWSS at risk protocol, DT precautions past tobacco abuse DVT prophylaxis. SCDs if INR less than 2 while Coumadin on hold re: thrombocytopenia, possible procedure Full code Admission and Anticipated Discharge Date Admission Date: June 04, 2024 Subjective Pt seen in follow up of abd. pain, gallstones/ gallstone pancreatitis Currently sitting up in bed in [facility] reports pain has improved / resolved, asking to advance her diet no fever, chills, chest pain or shortness of breath GI and surgery consulted -> pt is supposed to see gen. surgery in [facility] on Monday - however pt says she is not going there tmrw because of bad weather She also developed watery diarrhea x3 - stool studies ordered Monitor LFTs - tbili 1.5, ast, alt down - discussed labs and plan with GI and surgery over the phone, will obtain stool studies, ok to Dc home if negat. Review of Systems Review of Systems: All systems reviewed & are unremarkable except as noted in Subjective Physical Exam Physical Exam: GENERAL: WD/ WN F in NAD HEENT: NC/AT, EOMI NECK : Supple, no tenderness CHEST : Decreased breath sounds, no tenderness HEART : RRR, systolic murmur ABDOMEN: Some distention, nontender to palp (resolved) EXTREMITIES : Minimal LE swelling, no LE tenderness, moves extremities NEUROLOGIC : awake, alert, speech fluent, answers appropriately, moves extremities SKIN: warm, dry Results & Data Results & Data Vital Signs (Past 12 Hours) Vital Signs Temp Pulse Pulse Resp BP Pulse Ox O2 Del Method 06/06/24 23:37 36.5 C 68 18 128/73 96 Room Air Medications Administered Current Inpatient Medications Acetaminophen (Acetaminophen 500 Mg Tab) 500 mg PO Q6H PRN PRN Reason: fever/pain Stop: 07/04/24 01:13 Last Admin: 06/06/24 21:33 Dose: 500 mg Dextrose (Dextrose 50% 50 Ml Syringe) 25 - 50 ml IV UD PRN; Protocol PRN Reason: Hypoglycemia Protocol Stop: 07/04/24 02:28 Folic Acid (Folic Acid 1 Mg Tab) 1 mg PO QAM [facility] Stop: 07/04/24 08:59 Last Admin: 06/06/24 08:21 Dose: 1 mg Glucagon (Glucagon For Inj 1 Mg Vial) 1 mg SQ UD PRN; Protocol PRN Reason: Hypoglycemia Protocol Stop: 07/04/24 02:28 Glucose (Glucose 40% Gel 15 Gm Tube) 15 - 30 gm PO UD PRN; Protocol PRN Reason: Hypoglycemia Protocol Stop: 07/04/24 02:28 Glucose (Glucose 10 Tab/Tube) 4 - 8 tab PO UD PRN; Protocol PRN Reason: Hypoglycemia Protocol Stop: 07/04/24 02:28 Promethazine HCl (Phenergan) 6.25 mg in 50.25 mls @ 201 mls/hr IV Q6H PRN PRN Reason: Nausea And Vomiting Stop: 07/04/24 01:13 Last Infusion: 06/04/24 02:29 Dose: Infused Insulin Aspart (Insulin Aspart Per Unit Charge) 0 units SC ACHS [facility] Stop: 07/04/24 02:29 Last Admin: 06/07/24 07:43 Dose: Not Given Lorazepam (Lorazepam 2 Mg/1 Ml Vial) 1 mg IV ONE PRN; Protocol PRN Reason: EtoH Withdrawal AWSS 6-10 Lorazepam (Lorazepam 0.5 Mg Tab) 0.5 mg PO TID PRN PRN Reason: Anxiety Stop: 07/04/24 01:13 Melatonin (Melatonin 3 Mg Tab) 9 mg PO HS PRN PRN Reason: Sleep Stop: 07/04/24 02:54 Last Admin: 06/06/24 21:33 Dose: 9 mg Metoprolol Succinate (Metoprolol Succ 25mg Ext Rel Tab) 25 mg PO QAM [facility] Stop: 07/04/24 08:59 Last Admin: 06/06/24 08:21 Dose: 25 mg Miscellaneous (Carbohydrates For Hypoglycemia ) 15 - 30 gm PO UD PRN PRN Reason: Hypoglycemia Protocol Stop: 07/04/24 02:28 Multivitamins (Multivitamin Tab) 1 tab PO QAM [facility] Stop: 07/04/24 08:59 Last Admin: 06/06/24 08:21 Dose: 1 tab Oxycodone HCl (Oxycodone Hcl Ir 5 Mg Tab (Immediate Release)) 5 mg PO Q4H PRN PRN Reason: Pain Stop: 06/18/24 01:13 Sennosides (Senna 8.6 Mg Tab) 8.6 mg PO HS PRN PRN Reason: Constipation Stop: 07/04/24 02:54 Thiamine HCl (Thiamine Hcl 100 Mg Tab) [facility] [place] Stop: 07/05/24 08:59 Last Admin: 06/06/24 08:21 Dose: 100 mg Warfarin Sodium (Warfarin Sod 3 Mg Tab) 3 mg PO [email or web address] [facility] Stop: 07/06/24 15:59 Last Admin: 06/06/24 17:01 Dose: 3 mg Warfarin Sodium (Warfarin Sod 4 Mg Tab) 4 mg PO [email or web address] [facility] Stop: 07/07/24 15:59
[2024-06-07 08:11] LABS: Hemoglobin 9.9 g/dl (12.0-16.0); Mean Corpuscular Hemoglobin 23.2 pg (25.0-34.0); Mean Corpuscular Hgb Conc 30.9 g/dL (32.0-36.0); Mean Corpuscular Volume 75.1 fL (80.0-100.0); Mean Platelet Volume 8.7 fL (9.4-12.4); Platelet Count 119 K/uL (130-400); RDW Coefficient of Variation 14.8 % (11.5-14.5); Red Blood Count 4.26 M/uL (4.20-5.40)
[2024-06-07 08:22] LABS: Albumin Globulin Ratio 2.5 (0.9-2); Albumin Level 5.3 gm/dl (3.4-5.0); Bilirubin Direct 0.4 mg/dl (0-0.2); Bilirubin,Total 1.3 mg/dl (0.2-1.0); Calcium 10.6 mg/dl (8.6-10.3); Creatinine Clr Calc Pharmacy 79.3 ml/min; Globulin 2.1 gm/dl (2.5-4.0); Magnesium 1.8 mg/dl (1.7-2.4); Phosphorus 3.5 mg/dl (2.5-4.9); Potassium 3.5 mmol/L (3.5-5.1); Total Protein 7.4 gm/dl (6.0-8.3)
[2024-06-07 10:35] VITALS: BP 137/71; TEMP 97.9; O2SAT 98
[2024-06-07 11:54] LABS: Adenovirus F 40/41 PCR Not Detected (NotDetected); Astrovirus PCR Not Detected (NotDetected); Campylobacter PCR Not Detected (NotDetected); Cryptosporidium PCR Not Detected (NotDetected); Cyclospora cayetanensis PCR Not Detected (NotDetected); Entamoeba histolytica PCR Not Detected (NotDetected); Enteroaggregative E.coli(EAEC) Not Detected (NotDetected); Enteropathogenic E.coli (EPEC) Not Detected (NotDetected); Enterotoxigenic E.coli (ETEC) Not Detected (NotDetected); Giardia lamblia PCR Not Detected (NotDetected); Norovirus GI/GII PCR Not Detected (NotDetected); Plesiomonas shigelloides PCR Not Detected (NotDetected); Rotavirus A PCR Not Detected (NotDetected); Salmonella PCR Not Detected (NotDetected); Sapovirus PCR Not Detected (NotDetected); Shiga-like Toxin E.coli (STEC) Not Detected (NotDetected); Shigella/Enteroinvasive E.coli Not Detected (NotDetected); Vibrio cholerae PCR Not Detected (NotDetected); Vibrio species PCR Not Detected (NotDetected); Yersinia enterocolitica PCR Not Detected (NotDetected)
--- NOTE | 2024-06-07 13:12 | Discharge Summary ---
Date of Service June 07, 2024 Admission HPI Per Admitting Provider History obtained from patient and records. Medical history significant for chronic systolic heart failure (EF 45%, TTE 2023), congenital heart disease (pulmonic regurgitation)/mitral regurgitation status post MVR/PVR, complete heart block status post PPM, A-fib on Coumadin, PVD status post surgery, hypertension, hyperlipidemia, alcoholic cirrhosis, cholelithiasis, right breast atypical ductal hyperplasia, DM2 on oral medications, chronic anemia (baseline hemoglobin of 10), chronic thrombocytopenia, mood disorder, alcohol abuse as per records, past tobacco abuse. 2 months ago, patient had achy right-sided abdominal discomfort. Patient evaluated at [facility] ER. CT abdomen pelvis and ultrasound showed cholelithiasis without obstruction. Outpatient General Surgery consultation recommended. Patient seen at [facility] general surgery office last month. Outpatient HIDA scan recommended. 1. Gallbladder does not fill and the patient was unable to receive morphine or delayed images to exclude acute cholecystitis. These findings may represent functional gallbladder disease, chronic cholecystitis or acute cholecystitis. 2. Patent common bile duct. Patient seen on follow-up at the general surgeon's office 2 weeks ago. Concern for chronic cystic duct obstruction due to gallbladder not filling up on HIDA scan. Patient would not be a candidate locally for lap david; PERC drain may be a better intervention given patient medical issues as per provider note. Outpatient referral to [facility] General Surgery 06/07 contemplated. Patient had worsening achy right-sided abdominal pain associated with nausea and bilious emesis following dinner last night. No unusual chest pain or SOB. Some chills at home. Patient consulted ER for evaluation. IV cefepime administered at the ER. ED provider contacted [facility] General Surgery to transfer patient after review of history. Surgeon on-call (Dr. Lee) declined transfer recommending [facility] General Surgery evaluation prior to transfer as per ED provider. Lowest SBP of 80s documented at the ER. Medical History as above Surgical History : Breast biopsy, D&C, PPM, BTL, cataract surgeries, MVR, PVR, left breast lumpectomy Family History : DM, hypertension Personal/Social history : Past tobacco abuse, alcohol abuse as per records, retired from childcare work Admission Exam Per Admitting Provider GENERAL: Comfortable, pleasant, no respiratory distress SKIN: Pallor, warm HEENT: Pale palpebral conjunctivae, no ptosis, dry buccal mucosa NECK : Supple, no tenderness CHEST : Decreased breath sounds, no tenderness HEART : RRR, systolic murmur ABDOMEN: Some distention, epigastric tenderness EXTREMITIES : Minimal LE swelling, no LE tenderness, no other conspicuous deformities noted NEUROLOGIC : Coherent, no facial asymmetry, no other gross focality Principal Diagnosis Cholelithiasis and possible gallstone pancreatitis Abdominal pain, multiple gallstones, elevated LFTs, hx of cirrhosis Discharge Exam GENERAL: WD/ WN F in NAD HEENT: NC/AT, EOMI NECK : Supple, no tenderness CHEST : Decreased breath sounds, no tenderness HEART : RRR, systolic murmur ABDOMEN: Some distention, nontender to palp (resolved) EXTREMITIES : Minimal LE swelling, no LE tenderness, moves extremities NEUROLOGIC : awake, alert, speech fluent, answers appropriately, moves extremities SKIN: warm, dry Discharge Data Allergies Allergy/AdvReac Type Severity Reaction Status Date / Time Iodinated Contrast Media Allergy Severe Rash and Verified 06/04/24 02:27 sore mouth with IVP Dye Penicillins Allergy Severe Hives Verified 06/04/24 02:27 Consultations 06/04/24 00:36 ED Decision to Admit Stat 06/04/24 03:47 Consult Gastroenterology Routine 06/04/24 16:14 Consult General Surgery Routine Ordered Studies 06/03/24 22:46 US gallbladder Stat FINDINGS: Gallbladder: The gallbladder wall measures 3 mm. There is pericholecystic fluid. There are gallstones within the gallbladder. Common bile duct: The common bile duct measured 8 mm.. Pancreas: Pancreas was limitedly visualized. The visualized portions are unremarkable. The pancreatic duct measured 2.4 mm. Liver: The liver is enlarged and of increased echogenicity. Right kidney: No calculi or hydronephrosis is seen. IMPRESSION: There are gallstones noted within the gallbladder. There is pericholecystic fluid noted. The common bile duct is dilated. The liver is enlarged and of increased echogenicity which may be due to fatty infiltration and/or hepatocellular disease. 06/04/24 01:44 CT Abd and Pelvis [CT abd pelvis wo con] Stat FINDINGS: The visualized lung bases show fibrotic bands and mosaic attenuation pattern. Evaluation of the abdominal and pelvic visceral organs is limited without intravenous contrast. The liver shows nodular margins with apparent left and caudate lobe hypertrophy. Portal vein appears to be replaced by multiple collaterals at shantal hepatis. Multiple calculi averaging 3-4 mm are seen in gallbladder lumen, without pericholecystic fluid or fat stranding. The spleen, pancreas, and adrenal glands are grossly unremarkable. The kidneys are normal in size and attenuation without obvious calcification. There is no hydronephrosis or perinephric stranding. The ureters are normal in caliber. No adenopathy or fluid collections are seen. No evidence of focal or diffuse bowel wall thickening or evidence of bowel obstruction is seen. The appendix is visualized in the right lower quadrant and appears within normal limits. The aorta is normal in caliber without calcific plaques. The uterus shows a subcentimetric lipo-leiomyoma in posterior myometrium and a subcentimetric subserosal calcified fibroid in anterior myometrium. A cystic lesion measuring 4 cm AP by 3 cm transversely is noted in right adnexa. Degenerative changes are noted in the visualized spine. IMPRESSION: 1. Chronic liver disease with periportal portosystemic collaterals. 2. Cholelithiasis, without imaging evidence of cholecystitis. 3. Right adnexal cyst, recommend ultrasound correlation. 4. Small uterine leiomyomas. 06/04/24 11:08 US pelvic complete Routine FINDINGS: The uterus measures 6.7 x 4.5 x 2.9 cm. The endometrium is thickened, measuring 1.7 cm. A 1.2 cm echogenic focus within the posterior fundus corresponds to a fat-containing lesion on CT. Left ovary was not visualized. There is no free fluid. No adnexal mass was identified. A 4.1 x 4 x 2.6 cm cystic right adnexal lesion corresponds to the lesion on CT. There is mild irregularity and nodularity of the wall of this lesion. No color flow is identified within this lesion. IMPRESSION: 1. 4.1 cm cystic right adnexal lesion which corresponds to the finding on CT. Irregularity and mild nodularity of the wall without color flow. This represents a pathologically indeterminate right ovarian cystic lesion. Nonemergent Gynecologic consultation is recommended. 2. Thickened endometrium, measuring 1.7 cm. This is abnormal in a postmenopausal patient and correlation with postmenopausal bleeding and tissue sampling if possible. 3. 1.2 cm echogenic focus within the fundus which corresponds to a fat- containing lesion by CT. This represents a lipoleiomyoma. Hospital Course (1) Hypotension: Cholelithiasis and possible gallstone pancreatitis Abdominal pain, multiple gallstones, elevated LFTs, hx of cirrhosis Transient hypotension Biliary pancreatitis History of cholelithiasis Rule out CBD obstruction given abnormal LFTs No sepsis for now admitted to PCU IV albumin in place of crystalloid for IVF given pulmonary congestion on imaging CT abdomen pelvis re: abdominal pain with abnormal LFTs rule out CBD obstruction (Patient unable to undergo MRCP due to PPM.) 1. Chronic liver disease with periportal portosystemic collaterals. 2. Cholelithiasis, without imaging evidence of cholecystitis. 3. Right adnexal cyst, recommend ultrasound correlation. 4. Small uterine leiomyomas. GI consult re: pancreatitis General surgery consulted - 06/06 tbili 1.5, ast, alt down - discussed labs and plan with GI and surgery over the phone, will obtain stool studies, ok to [place] home if negat. - 06/07 - abd. pain resolved, tolerating diet, stool studies negative and diarrhea has resolved Per surgery - Cholelithiasis with no obvious cholecystitis, questionable passed stone in the setting of cirrhosis. Not eligible for MRCP due to pacemaker. She has an appointment scheduled Monday for evaluation for cholecystectomy in [place], but will likely not make it due to weather. Her bilirubin was up to 1.5, though mostly unconjugated and likely from her liver. She is a high risk surgical candidate due to her cirrhosis. Advance to low-fat diet - tolerating diet No surgical intervention planned for the time being Okay to DC if tolerates regular diet from general surgery standpoint Follow-up with surgery in [place] to discuss possible cholecystectomy given her cirrhosis and other medical comorbidities. R Adnexal cyst US obtained 1. 4.1 cm cystic right adnexal lesion which corresponds to the finding on CT. Irregularity and mild nodularity of the wall without color flow. This represents a pathologically indeterminate right ovarian cystic lesion. Nonemergent Gynecologic consultation is recommended. 2. Thickened endometrium, measuring 1.7 cm. This is abnormal in a postmenopausal patient and correlation with postmenopausal bleeding and tissue sampling if possible. 3. 1.2 cm echogenic focus within the fundus which corresponds to a fat- containing lesion by CT. This represents a lipoleiomyoma. - needs Outpt follow up w/ gynecology Hypomagnesemia, Replace electrolytes Chronic conditions: chronic systolic heart failure (EF 45%, TTE 2023), equivocal volume status, some congestion on imaging congenital heart disease (pulmonic regurgitation)/mitral regurgitation status post MVR/PVR complete heart block status post PPM hx postop A-fib on Coumadin, INR supratherapeutic PVD status post surgery hyperlipidemia, on statin Rx alcoholic cirrhosis, some signs of fluid overload right breast atypical ductal hyperplasia, patient follows with local breast surgeon DM2 on oral medications, well-controlled as of recent hemoglobin A1c of 6.5 this month, ISS BG goal 110-140 chronic anemia, hemoglobin at baseline chronic thrombocytopenia likely secondary to liver disease alcohol abuse as per records, AWSS at risk protocol, DT precautions past tobacco abuse Total Time Total Time Spent Total Time Spent (In Minutes): 40 Discharge Plan Discharge Items Patient Disposition: Home - Self-Care Reason For Visit: HYPOTENSION, ALCOHOL ABUSE, ABD PAIN Discharge Diagnosis: Cholelithiasis and possible gallstone pancreatitis Abdominal pain, multiple gallstones, elevated LFTs, hx of cirrhosis Activity: Per Instructions section Non-emergency contact: Primary Care Provider and Surgeon Call non-emergency contact if: you have any medication questions and your symptoms worsen Follow-up/Referrals: Georgi Ellison MD [Primary Care Provider] - Diet: Low Fiber and Low Fat Addtl Attending Provider Instructions: Follow up with your primary care doctor and with general surgeon. Recommend low fat diet. Do not take losartan until you discuss this with your primary care doctor. Monitor your blood pressure at home, if you can, and further discuss with your doctor. Pending Studies at Discharge: Yes Studies:: final results of blood cultx Stand-Alone Forms: My [facility] Vocation, Smoking Cessation Medications and DC Order Prescriptions: Continued furosemide 40 mg Tablet 40 mg PO QAM aspirin [Pacheco Low Dose Aspirin] 81 mg Tablet,Delayed Release (Dr/Ec) 162 mg PO QAM metformin 1,000 mg Tablet 1,000 mg PO BID warfarin 2 mg Tablet 2 mg PO UD Rx Instructions: 3mg Qdch-Wmsoa-Glv-Sun 4mg Mon-Mon-Mon metoprolol succinate 25 mg Tablet Extended Release 24 Hr 25 mg PO QAM spironolactone 50 mg Tablet 50 mg PO TID rosuvastatin 20 mg Tablet 20 mg PO QAM potassium chloride 20 mEq Tablet Extended Release 20 meq PO BID tramadol 50 mg Tablet 50 mg PO DAILY nystatin 100,000 unit/gram Cream 1 applic TOPICAL BID sennosides [senna] 8.6 mg Tablet 8.6 mg PO HS PRN (Reason: Constipation) acetaminophen [Tylenol] 325 mg Tablet 650 mg PO QID PRN (Reason: Pain) melatonin 10 mg Tablet 10 - 30 mg PO HS PRN (Reason: Sleep) Held losartan 25 mg Tablet 25 mg PO DAILY Hold Instructions: Resume on 06/14/24. until seen by primary care doctor Discharge Orders: Discharge Order (Routine); Ordered 06/07/24 Ordered By: Vicente Castellanos Admission Data Admit Date/Time: 06/04/24 03:47 Attending Provider: Vicente Castellanos Admit Provider: Ben Andrade Primary Care Provider: Georgi Ellison Other Providers: Ben Andrade; Nikolay Flanagan; Earl Simmons; Nae Adler; Gabriela Garrett; Keri John; Anusha Moreno; Hamida Mijares; Gage Coleman; Kim Warren; Haleigh Ambrose; Oliver Mejia S; Winifred Ochoa; Fifi Santizo; Bethany Lopez; Barbara Escamilla; Daylin Manzo; Iain Campos; So Wilder; Bhavik Xie Jr; Allan Stacy.; Massimo Kapadia; Jatinder Rhoades; Dereje Rodríguez; Daja Mireles; Nnamdi Estrella I; Francine Prado; Los Márquez
[2024-06-07 13:19] VITALS: PULSE 72
[2024-06-07] MEDS ORDERED: WARFARIN SOD 4 MG TAB PO SCH (16:00)
--- NOTE | 2024-06-09 14:51 | Coding Query ---
CODING QUERY To promote full compliance with coding requirements relating to patient care, provider participation is requested in all cases of wallboard worker uncertainty. Please assist us with the question(s) below: Coding Question(s): Pt admitted with abdominal pain. Cholelithiasis and GB pancreatitis diagnosed. Mention by GI re: possible bile duct calculus possibly past by patient. Please check below the phrase that describes the possible bile duct calculus. Note : MRCP not done due to patient's pacemaker. Physician's Response(s): ____x____ The patient possibly had a bile duct calculus that had passed The patient did not have a bile duct calculus Other: Please document: Principal Diagnosis: "that condition established after study, to be chiefly responsible for occasioning the admission of the patient to the hospital for care." Co-Existing Principal Diagnosis: "when two or more diagnoses equally meet the criteria for principal diagnosis as determined by the circumstances of admission, diagnostic work up, and/or therapy provided, and the Alphabetic Index, Tabular List, or another coding guideline does not provide sequencing direction, any one of the diagnoses may be sequenced first." "When the physician has documented what appears to be a current diagnosis in the body of the record, but has not included the diagnosis in the final diagnostic statement, the physician should be asked whether the diagnosis should be added." (Source [facility]oding [facility] 2 QTR90. p3-4) JADE
--- NOTE | 2024-06-09 14:54 | Coding Query ---
CODING QUERY To promote full compliance with coding requirements relating to patient care, provider participation is requested in all cases of erp implementation consultant uncertainty. Please assist us with the question(s) below: Coding Question(s): Pt admitted with cholelithiasis. Discharge Summary mentioned gall bladder pancreatitis. Seeking to clarify the acuity of the pancreatitis. Please check below & thank you ! Timothy Del Valle CRM COORDINATOR [facility] Physician's Response(s): Acute biliary pancreatitis Chronic biliary pancreatis Principal Diagnosis: "that condition established after study, to be chiefly responsible for occasioning the admission of the patient to the hospital for care." Co-Existing Principal Diagnosis: "when two or more diagnoses equally meet the criteria for principal diagnosis as determined by the circumstances of admission, diagnostic work up, and/or therapy provided, and the Alphabetic Index, Tabular List, or another coding guideline does not provide sequencing direction, any one of the diagnoses may be sequenced first." "When the physician has documented what appears to be a current diagnosis in the body of the record, but has not included the diagnosis in the final diagnostic statement, the physician should be asked whether the diagnosis should be added." (Source Coding Clinic 2 QTR90. p3-4) JADE
== END 2024-06-07 14:24 | disposition home or self-care (01) | DRG 444 ==
LOC: 2E 22:33 → ED 22:33 → SUATTDRO 06-04 01:06 → 2E 06-04 03:30